=== PATIENT | female | born 1955 | race Caucasian/White ===

== ENCOUNTER 2021-03-07 16:08 | Outpatient (CLI) | payer OTHER, SELFPAY ==
--- NOTE | 2021-03-07 15:30 | ECG_ITS ---
Measurements Intervals [place] Rate: 68 P: 5 ID: 163 QRS: -7 QRSD: 94 T: 22 QT: 436 QTc: 464 Interpretive Statements SINUS RHYTHM BASELINE ARTIFACT- I, III, AVR, AVL,A VF NORMAL ECG Electronically Signed On 03-07-2021 15:29:51 CDT by Abdirashid Richey D.O.
[2021-03-07 15:53] LABS: Hematocrit 46.6 % (37.0-47.0); Hemoglobin 15.4 g/dL (12.0-15.0)
== END 2021-03-07 16:09 | disposition home or self-care (01) ==
LOC: ANHSURGERY 04-17 16:09
PROVIDERS: Anesthesiology; PCP Nurse Practitioner Adult Health; Visit Provider Surgery Plastic and Reconstructive Surgery
DX: Z01.818 Encounter for other preprocedural examination (principal); Z41.9 Encounter for procedure for purposes other than remedying health state, unspecified
CPT/HCPCS: 36415; 85014; 85018; 93005

== ENCOUNTER → 2021-03-15 01:02 | Outpatient (CLI) | payer OTHER, SELFPAY ==
[2021-03-15 19:43] LABS: SARS-CoV-2 RNA PCR Negative
== END ==
PROVIDERS: PCP Nurse Practitioner Adult Health; Visit Provider Surgery Plastic and Reconstructive Surgery
DX: Z01.812 Encounter for preprocedural laboratory examination (principal); Z20.822 Contact with and (suspected) exposure to COVID-19
CPT/HCPCS: C9803; U0003; U0005

== ENCOUNTER 2021-03-18 00:11 | Day surgery (SDC) | payer OTHER, SELFPAY ==
[2021-03-18] VITALS (10 sets, daily range): BP systolic 139–179; BP diastolic 77–108; PULSE 59–82; RESP 10–18; TEMP 36.3–36.7; O2SAT 97–100
[2021-03-18 07:22] LABS: Urine Cotinine NEGATIVE
[2021-03-18] MEDS: LACTATED RINGERS 1,000 ML 30 ML IV CONT ×2 (07:35→15:26)
--- NOTE | 2021-03-18 08:27 | WPDANESEPPF ---
Anes - Initial Pre Proc Eval Procedure: Operation Date: 03/18/21 09:00 Proposed Procedures p Face and Neck Lift, - Robert Kumar MD s Bilateral Upper Eyelid Blepharoplasty - Robert Kmuar MD s Upper Abdominal Liposuction - Robert Kumar MD Date/Time: 03/18/21 08:27 Surgeon: Robert Kumar MD Pre Op Diagnosis: skin laxity, localized adiposity Patient Data Age: 65 Gender: F Height: 5 ft 3 in Weight: 77.55 kg Last Vital Signs Temp 36.6 C 03/18/21 07:19 Pulse 59 L 03/18/21 07:19 Resp 18 03/18/21 07:19 BP 152/89 H 03/18/21 07:19 Pulse Ox 100 03/18/21 07:19 Allergies Allergy/AdvReac Type Severity Reaction Status Date / Time codeine Allergy Gastrointestinal Verified 03/18/21 07:43 Upset iodine Allergy Swelling Verified 03/18/21 07:43 morphine Allergy Gastrointestinal Verified 03/18/21 07:43 Upset Home Medications Medication Instructions Recorded Confirmed Type apple cider vinegar 300 mg PO DAILY 03/04/21 03/18/21 History calcium 600 mg PO DAILY 03/04/21 03/18/21 History glucos sul [id number] 1 cap PO DAILY 03/04/21 03/18/21 History [Glucosamine Chondroitin] multivitamin 1 tablet PO DAILY 03/04/21 03/18/21 History omega-3 fatty acids [Fish Oil] 1,000 mg PO DAILY 03/04/21 03/18/21 History vitamin B complex 1 tablet PO DAILY 03/04/21 03/18/21 History docusate sodium 100 mg capsule 100 mg PO DAILY #14 cap 03/10/21 03/18/21 Rx ondansetron HCl 4 mg tablet 4 mg PO Q8H #28 tablet 03/10/21 03/18/21 Rx oxycodone-acetaminophen 5 mg-325 1 tablet PO Q6H PRN #15 tablet 03/12/21 03/18/21 Rx mg tablet Laboratory Tests 03/18/21 07:07 Cotinine Negative Patient hx anesthesia problems: none Family hx anesthesia problems: none PMFSH Surgical History Surgical History History of breast reconstruction History of delivery History of cholecystectomy History of cosmetic plastic surgery excess skin removal History of hernia repair Social History Social History Smoking status: Never smoker Alcohol intake: never Substance use: never Substance use type: does not use Living arrangements: with family Spiritual care concerns: No Anes - Eval Final PreProcedure Day of Procedure 03/18/21 08:27 Patient weight: obese Heart: regular rate and rhythm Lungs: clear to auscultation Airway: Mallampati scale class II Neurological: alert and oriented Last oral intake: >/= 8 hours ASA classification: II Emergent: no Anesthetic plan: proceed Anesthesia type and monitoring: general ETT and standard monitoring Informed Consent: The patient's anesthetic plan and its attendant risks and benefits were discussed with the patient/family/POA. Questions were solicited and answers provided to the satisfaction of the patient/family/POA.
--- NOTE | 2021-03-18 08:58 | WPDHPUPDATE1 ---
History and Physical Update Update Date/Time: 03/18/21 08:58 History and Physical has been reviewed, including an updated exam of the patient. There are NO changes in the patient's condition. Risks, benefits, and alternatives have been discussed and questions answered. Patient agrees to proceed with procedure.
[2021-03-18] MEDS: ceFAZolin 2 GM/D5W 50 ML 2 GM/50 ML BAG IVPB (09:50)
[2021-03-18] MEDS: LIDO 1%/EPINEPHRINE 1:100,000 50 ML VIAL INFILTRATE (11:32)
[2021-03-18] MEDS: ceFAZolin SODIUM 1 GM VIAL IV PUSH (13:47)
[2021-03-18] MEDS: TRANEXAMIC ACID 1,000 MG/10 ML AMPUL 1000 MG IV PUSH (14:02)
--- NOTE | 2021-03-18 15:21 | PM.PROC ---
Procedure Note - Detailed Date of procedure: 03/18/21 Pre-op diagnosis: skin laxity, localized adiposity Post-op diagnosis: same Procedure performed: 1. Face-lift 2. Neck lift 3. Bilateral upper eyelid blepharoplasty 4. Suction lipectomy upper abdomen Description of procedure: Preoperatively the risks, benefits, alternatives were discussed in extensive detail with her and her . I want them to be very realistic about the risks as well as expectations. Made sure answered all of their questions to their satisfaction and consent was obtained. They voiced understanding. She was marked in the preoperative holding area. In the standing position and marked the abdomen. Marked the upper eyelid blepharoplasty with the lower incision of the tarsal crease. I did a pinch test technique to ensure she would have no lagophthalmos after the procedure. The remainder of the markings were made. She was taken to the operating room placed supine on the operating room table. Anesthesia was provided by anesthesiology. She was prepped and draped in a standard sterile fashion. Surgical time-out was taken. Abdomen: I began at the abdomen. I did a thorough abdominal examination to rule out any hernias. Stab incisions were made through previous scars. I used a tumescent solution to tumesced the abdomen. Once adequate time for hemostasis I completed suction lipectomy using and modification of S.A.F.E. technique. This was based on preoperative planning, intraoperative observations, and rolling pinch test. Steri-Strips are placed over the access sites. Blepharoplasty: 1% lidocaine and 0.25% Marcaine with epinephrine was used anesthetize locally. Sharply excised the skin flap. Open the medial and middle compartments and removed any excess adiposity. Care was taken to protect from deep structure injury. I verified strict hemostasis. I closed using running subcuticular 4-0 Prolene which was held into place with Steri-Strips on the medial and lateral aspect. Face/neck: Using a tumescent solution with Tx a I completed infiltration of the face and neck. Fifteen blade used to make a submental incision. Dissection was continued down identified platysma muscle. Elevated skin flaps with good adiposity of the deep surface throughout the neck. Id fat had a portion of the superficial portion of the platysma. I then went sub platysmal and deep fat of the small portion. Care was taken to make sure there was a good smooth contour under the submental area. There really was minimal protrusion of the submandibular glands noted. I plicated the digastric muscle with 2-0 Vicryl. I then slightly trimmed the platysma muscle and imbricated as with vertical mattress sutures using 2-0 Vicryl in multiple layers. I did a inferior platysmal release. I then proceeded made the remainder of the incisions. I elevated skin flaps with good adequate adiposity of the deep surface to have good contour. This was continued for all the areas necessary for mobilization. I then proceeded with mass plication in multiple layers using 2-0 Vicryl bilateral. This is an oblique fashion from the angle towards the malar prominence. Copious irrigated with saline solution and verified strict hemostasis. I placed 10 Pillo drains the right 1 went subcutaneous left 1 a broad around under the platysma muscle. These drains were sutured in place postauricular with this 3-0 Vicryl. The skin flaps were just placed into position without any tension. Trimmed as necessary. Preauricular was closed with 5 0 nylon. Postauricular with 5 0 chromic. I did jimmy in the hairline. Submental was closed using 3-0 Monocryl followed by running subcuticular 4-0 Monocryl and tissue glue. Dressings were placed. Patient was woken without difficulty. All instrument sponge counts were correct at the end of the case. Surgeon: Robert Kumar MD Estimated blood loss (mL): 20 Drains: Yes (Bilateral 10 Pillo) Packing: No Patho
[2021-03-18] MEDS: LACTATED RINGERS 1,000 ML 125 ML IV CONT (15:26)
[2021-03-18] MEDS: fentaNYL CITRATE INJ (*CRX) 100 MCG/2 ML VIAL 25 MCG IV PUSH ×5 (15:40→17:01)
--- NOTE | 2021-03-18 16:10 | SUR.PHASEI ---
1610- updated by phone.
[2021-03-18] MEDS: LABETALOL HCL INJ 100 MG/20 ML VIAL 10 MG IV PUSH (16:36)
--- NOTE | 2021-03-18 16:45 | SUR.PHASEI ---
1630- anesthesia made aware of BP, medication ordered and given.
[2021-03-18] MEDS: ONDANSETRON INJ 4 MG/2 ML VIAL IV PUSH ×2 (17:49→20:06)
[2021-03-18] MEDS: oxyCODONE/ACETAMINOPHEN (*CRX) 5-325 MG TABLET PO (18:22)
[2021-03-18] MEDS: diazePAM (*CRX) 5 MG TABLET 2.5 MG PO (20:06)
[2021-03-18] MEDS: KETOROLAC 30 MG/ML VIAL (*BKC) 15 MG IV PUSH (21:39)
[2021-03-18] MEDS: DOCUSATE SODIUM 100 MG CAPSULE PO (22:40)
[2021-03-18] MEDS: ENOXAPARIN 40 MG/0.4 ML SYRINGE SUB-Q (22:40)
[2021-03-19] MEDS: oxyCODONE/ACETAMINOPHEN (*CRX) 5-325 MG TABLET PO ×2 (01:16→10:50)
[2021-03-19] MEDS: ONDANSETRON INJ 4 MG/2 ML VIAL IV PUSH ×2 (01:21→07:37)
[2021-03-19] MEDS: LACTATED RINGERS 1,000 ML 125 ML IV CONT (01:34)
[2021-03-19] MEDS: IBUPROFEN 600 MG TABLET (03:41)
[2021-03-19 05:20] VITALS: BP 124/79; PULSE 72; RESP 16; TEMP 36.9
[2021-03-19 07:00] VITALS: BP 137/77; PULSE 63; RESP 18; TEMP 36.8; O2SAT 98
--- NOTE | 2021-03-19 07:14 | WPDPN ---
Progress Note: A&P Assessment and Plan (1) Encounter for cosmetic surgery: Code(s): Z41.1 - Encounter for cosmetic surgery Status: Acute Assessment and Plan: She is doing very well after bilateral upper eyelid blepharoplasty, face and neck lift, suction lipectomy of abdomen. All discharge home. Follow-up Wednesday. Call with any questions or concerns. Time Spent With Patient Time with patient: 25 - 35 minutes Review of Systems Review of Systems: Narrative: Still some eye discomfort but much improved. All systems reviewed & are unremarkable except as noted in HPI and below Exam Narrative: Exam Narrative: CN 2-12 grossly intact. PERRLA EOMI. Healing well. No lagophthalmos. No hematoma. No seroma. Drains are in place with minimal drainage. Abdomen is healing well. No signs of infection. No hematoma. No seroma. No calf tenderness. Negative Homans. Const: General: cooperative, healthy appearing and comfortable Objective Data Vital Signs Vital Signs: Vital Signs - 24 hr 03/18/21 07:19 03/18/21 15:26 03/18/21 15:40 Temperature 36.6 C 36.3 C L Pulse Rate 59 L 82 78 Respiratory Rate 18 13 12 Blood Pressure 152/89 H 163/94 H 152/94 H Pulse Oximetry 100 100 97 03/18/21 15:54 03/18/21 16:10 03/18/21 16:43 Temperature Pulse Rate 76 78 68 Respiratory Rate 10 L 12 11 L Blood Pressure 149/91 H 170/90 H 179/108 H Pulse Oximetry 97 97 97 03/18/21 16:57 03/18/21 17:15 Temperature 36.7 C Pulse Rate 72 73 Respiratory Rate 11 L 14 Blood Pressure 139/81 153/90 H Pulse Oximetry 97 98 Intake/Output Intake/Output: Intake & Output 03/16/21 03/17/21 03/18/21 03/19/21 23:59 23:59 23:59 23:59 Intake Total 450 Output Total 175 Balance 275 Meds/Results Medications: Active Medications Generic Name Dose Route Start Last Admin Trade Name Freq PRN Reason Stop Dose Admin Benzocaine 1 lozenge 03/18/21 18:20 Benzocaine/Menthol (*Bkc) 18 Ea Lozenge PO PRN PRN Sore Throat Calcium Carbonate 500 mg 03/19/21 09:00 Calcium Carbonate (Oscal) 500 Mg Tablet PO 04/18/21 09:01 DAILY VICTOR HUGO Diazepam 2.5 mg 03/18/21 19:31 03/18/21 20:06 Diazepam (*Crx) 5 Mg Tablet PO 2.5 mg DAILY PRN Administration Anxiety Docusate Sodium 100 mg 03/18/21 21:00 03/18/21 22:40 Docusate Sodium 100 Mg Capsule PO 100 mg Q12HR VICTOR HUGO Administration Enoxaparin Sodium 40 mg 03/18/21 22:00 03/18/21 22:40 Enoxaparin 40 Mg/0.4 Ml Syringe SUB-Q 40 mg DAILY VICTOR HUGO Administration Lactated Ringer's 1,000 mls @ 125 mls/hr 03/18/21 15:35 03/19/21 01:34 Lr - Lactated Ringers Iv IV CONT 125 mls/hr .Q8H VICTOR HUGO Administration Ibuprofen 600 mg 03/19/21 03:43 Ibuprofen 600 Mg Tablet PO Q6H PRN Pain Mineral Oil/Petrolatum/Glycerin 1 applic 03/18/21 21:00 Mineral Oil/Petrolatum Ophth Oint 3.5 Gm (Eye Lubricant) EACH EYE HS [facility] Morphine Sulfate 2 mg 03/18/21 15:32 Morphine Sulfate (*Crx) 2 Mg/Ml Inj IV PUSH Q2H PRN Pain Ondansetron HCl 4 mg 03/18/21 15:32 03/19/21 01:21 Ondansetron Inj 4 Mg/2 Ml Vial IV PUSH 4 mg Q6H PRN Administration Nausea Oxycodone/Acetaminophen 1 - 2 tablet 03/18/21 15:32 03/19/21 01:16 Oxycodone/Acetaminophen (*Crx) 5-325 Mg Tablet PO 2 tablet Q6H PRN Administration Pain 7-10 Tetracaine HCl 1 drop 03/18/21 19:08 Tetracaine Hcl 0.5% Ophth Soln 4 Ml Btl EACH EYE 03/20/21 19:09 Q6HR PRN EYE PAIN Labs Labs: Laboratory Results - last 24 hr 03/18/21 07:07 Cotinine Negative Subjective Date/time seen: 03/19/21 07:14 Last evening I saw her because of some pain in her eyes. We irrigated with BSS and placed GenTeal eyedrops. Following this she had significant improvement. As anticipated discomfort overnight. This morning she says she is doing much better. Still having some discomfort as expected. Otherwise no complaints. No fev
--- NOTE | 2021-03-19 07:31 | P.DS_ITS ---
DS: Admitting Diagnosis Admitting Diagnosis Admitting Diagnosis: Encounter cosmetic surgery DS: Discharge Diagnosis Discharge Diagnosis (1) Encounter for cosmetic surgery: Code(s): Z41.1 - Encounter for cosmetic surgery Status: Acute DS: Summary Hospital Course Hospital Course: Patient underwent bilateral upper eyelid blepharoplasty, face and neck lift, suction lipectomy of upper abdomen. Doing very well. Will discharge home. Time Spent with Patient Time attestation: Total time spent providing and/or coordinating discharge services: 25 minutes with her and her . Exam Narrative: Exam Narrative: CN 2-12 grossly intact. PERRLA EOMI. Healing well. No lagophthalmos. No hematoma. No seroma. Drains are in place with minimal drainage. Abdomen is healing well. No signs of infection. No hematoma. No seroma. No calf tenderness. Negative Homans. Const: General: cooperative, healthy appearing and comfortable Discharge Plan Discharge Patient Disposition: Home, Self-Care Discharge Instructions: POST OPERATIVE DISCHARGE INSTRUCTIONS ROBERT KUMAR M.D. [facility] [facility] [address] [place] [address] * No driving for 24 hours after anesthesia and while you are taking pain medication. * Take all prescribed medication as directed * Diet as tolerated. * No lifting or activity that raises blood pressure for 48 hours. * Regular walking / ambulation. * No showering until directed to. Once you shower do not take pain medication before showering as the combination of medication and heat may cause you to feel dizzy or pass out. * No pools or tubs for 2 weeks. * Call with any questions or concerns. * Elevate head of bed until follow-up. * Dressing Care: Facelift tape / abdominal binder 23 hours per day. If you have any questions or concerns, please call the office . If it is after hours you will be directed to the operations and maintenance technician exchange. Shortness of breath, chest pain, or other medical emergency dial 911 / proceed to the Emergency Room. Patient Instructions: [facility] (GEN) Stand Alone Forms: General Discharge Instructions Follow-up/Referrals: Robert Kumar MD [Physician] - 1 Week Discharge Medications: Continued multivitamin Tablet 1 tablet PO DAILY RF: 0 calcium 600 mg Capsule 600 mg PO DAILY RF: 0 vitamin B complex Tablet 1 tablet PO DAILY RF: 0 omega-3 fatty acids Capsule 1,000 mg PO DAILY RF: 0 apple cider vinegar 300 mg Tablet 300 mg PO DAILY RF: 0 Glucosamine Chondroitin 550-30-1 mg Capsule 1 cap PO DAILY RF: 0 ondansetron HCl [Zofran] 4 mg tablet 4 mg PO Q8H Qty: 28 RF: 0 docusate sodium [Colace] 100 mg capsule 100 mg PO DAILY Qty: 14 RF: 0 oxycodone-acetaminophen [Percocet] 5-325 mg tablet 1 tablet PO Q6H PRN (Reason: pain) Qty: 15 RF: 0
--- NOTE | 2021-03-19 09:04 | WPDANESPN ---
Anes - Prog Note Post-Op Date/Time: 03/19/21 09:04 Cardiovascular status: normal Respiratory status: normal Airway patency: baseline Mental status: baseline Post-Op hydration status: normal Vital Signs: Last Vital Signs Temp 36.9 C 03/19/21 05:20 Pulse 72 03/19/21 05:20 Resp 16 03/19/21 05:20 BP 124/79 03/19/21 05:20 Pulse Ox 97 03/18/21 20:00 Pain Score (VAS): no c/o pain I/O: Intake & Output 03/18/21 03/19/21 03/19/21 23:59 07:59 15:59 Intake Total 400 300 Output Total 175 965 Balance 225 -665 Post-procedural complaints: none Patient Feedback: Patient satisfied with anesthetic care.
[2021-03-19] MEDS: DOCUSATE SODIUM 100 MG CAPSULE PO (10:40)
[2021-03-19] MEDS: CALCIUM CARBONATE (OSCAL) 500 MG TABLET PO (10:40)
[2021-03-19] MEDS: ENOXAPARIN 40 MG/0.4 ML SYRINGE SUB-Q (10:40)
== END 2021-03-19 13:12 | disposition home or self-care (01) ==
LOC: ANHSURGERY 06:54 → ANHOB2 17:37
PROVIDERS: PCP Nurse Practitioner Adult Health; Visit Provider Surgery Plastic and Reconstructive Surgery
PROC: (CPT 15824; principal; 2021-03-18 09:00)
PROC: (CPT 15877; 2021-03-18 09:00)
PROC: (CPT 15877; 2021-03-18 09:00)
DX: Z41.1 Encounter for cosmetic surgery (principal); L57.4 Cutis laxa senilis; Z79.899 Other long term (current) drug therapy; E66.9 Obesity, unspecified; Z68.30 Body mass index [BMI] 30.0-30.9, adult
CPT/HCPCS: 15877; 15825; 15822; 80307; 99199; A9270; J0171; J0690; J1100; J1170; J1650; J1885; J2250; J2405; J2704; J3010; J7030; J7120; Q9968

== ENCOUNTER 2021-08-05 02:06 | Day surgery (SDC) | payer BC, SELFPAY ==
[2021-07-29 13:12] VITALS: BMI 29.1
--- NOTE | 2021-08-05 10:32 | WPDANESEPPF ---
Anes - Initial Pre Proc Eval Procedure: Operation Date: 08/05/21 12:00 Proposed Procedures p Screening Colonoscopy - Yann Dyer MD Date/Time: 08/05/21 10:32 Surgeon: Yann Dyer MD Pre Op Diagnosis: neoplasm screening Patient Data Age: 65 Gender: F Height: 1.63 m Weight: 77 kg Allergies Allergy/AdvReac Type Severity Reaction Status Date / Time codeine Allergy Gastrointestinal Verified 08/05/21 10:34 Upset iodine Allergy Swelling Verified 08/05/21 10:34 morphine Allergy Gastrointestinal Verified 08/05/21 10:34 Upset Home Medications Medication Instructions Recorded Confirmed Type phentermine 37.5 mg PO DAILY 07/29/21 08/05/21 History Patient hx anesthesia problems: none Family hx anesthesia problems: none [facility] Past Medical History Medical History (Updated 08/05/21 @ 10:39 by Yann Dyer MD) Depression Surgical History Surgical History History of breast reconstruction History of delivery History of cholecystectomy History of cosmetic plastic surgery excess skin removal History of hernia repair Social History Social History Smoking status: Never smoker Alcohol intake: current Alcohol use details: drink on May Substance use: current Substance use type: marijuana Other substance usage details: gummies Living arrangements: with family Spiritual care concerns: No Anes - Eval Final PreProcedure Day of Procedure 08/05/21 10:32 Patient weight: overweight Heart: regular rate and rhythm Lungs: clear to auscultation and normal air movement Airway: Mallampati scale class II Neurological: alert and oriented Last oral intake: >/= 8 hours ASA classification: II Emergent: no Anesthetic plan: proceed Anesthesia type and monitoring: general GIVS and standard monitoring Informed Consent: The patient's anesthetic plan and its attendant risks and benefits were discussed with the patient/family/POA. Questions were solicited and answers provided to the satisfaction of the patient/family/POA.
[2021-08-05 10:37] VITALS: BP 154/117; PULSE 96; RESP 18; TEMP 37.5; O2SAT 98; BMI 28.8
--- NOTE | 2021-08-05 10:38 | WPDGICN ---
Assessment and Plan Assessment and plan (1) History of colon polyps: Code(s): Z86.010 - Personal history of colonic polyps Status: Acute Assessment and Plan: Patient has a prior history of colon polyps. Surveillance colonoscopy advised at this time. Further recommendations will be given after endoscopy. (2) Family history of colonic polyps: Code(s): Z83.71 - Family history of colonic polyps Status: Acute Assessment and Plan: Patient's daughter and mother both have had colon polyps as well as patient. Surveillance colonoscopy is advised every 5 years given this history. GI Consult Note Consult date/time: 08/05/21 10:38 HPI: Henrry Priest is a 65 year old female Presents for screening colonoscopy. Patient reports having had a colonoscopy elsewhere 12 years ago. She reports that they found colon polyps at that time. She has not had return for follow-up colonoscopy until today. Family history is significant that her mother has had colon polyps and her daughter has had colon polyps. Patient reports that her current weight appetite bowel movements are normal. Her family history is as stated. Review of Systems Review of Systems: All systems reviewed & are unremarkable except as noted in HPI and below PMFSH Past Medical History Medical History (Updated 08/05/21 @ 10:39 by Yann Dyer MD) Depression Surgical History Surgical History History of breast reconstruction History of delivery History of cholecystectomy History of cosmetic plastic surgery excess skin removal History of hernia repair Social History Social History Smoking status: Never smoker Alcohol intake: current Alcohol use details: drink on May Substance use: current Substance use type: marijuana Other substance usage details: ruby Living arrangements: with family Spiritual care concerns: No Meds Home Medications and Allergies Home Medications Medication Instructions Recorded Confirmed Type phentermine 37.5 mg PO DAILY 07/29/21 08/05/21 History Allergies Allergy/AdvReac Type Severity Reaction Status Date / Time codeine Allergy Gastrointestinal Verified 08/05/21 10:34 Upset iodine Allergy Swelling Verified 08/05/21 10:34 morphine Allergy Gastrointestinal Verified 08/05/21 10:34 Upset Exam Narrative: Physical exam reveals patient to be alert. Vital signs stable. HEENT exam is unremarkable. Patient is anicteric. Lungs are clear to auscultation and percussion. Heart is without murmur or extra sounds. Abdominal exam bowel sounds are present soft nontender with no organomegaly. Digital external rectal exam is normal.
[2021-08-05] MEDS: LACTATED RINGERS 1,000 ML 150 ML IV CONT (10:40)
[2021-08-05] MEDS: SIMETHICONE ORAL SUSPENSION 20 MG/0.3 ML 30 ML BOTTLE 0.6 ML IRRIGATION (11:41)
[2021-08-05 11:51] VITALS: BP 150/89; PULSE 76; RESP 15; O2SAT 100
[2021-08-05 12:01] VITALS: BP 151/88; PULSE 76; RESP 15; O2SAT 100
[2021-08-05 12:11] VITALS: BP 168/84; PULSE 76; RESP 18; O2SAT 100
== END 2021-08-05 12:20 | disposition home or self-care (01) ==
PROVIDERS: PCP Nurse Practitioner Adult Health; Visit Provider Internal Medicine Gastroenterology
PROC: 0DJD8ZZ Inspection of Lower Intestinal Tract, Via Natural or Artificial Opening Endoscopic (ICD-10-PCS; CPT 45378; principal; 2021-08-05 12:00)
DX: Z12.11 Encounter for screening for malignant neoplasm of colon (principal); D12.2 Benign neoplasm of ascending colon; K64.8 Other hemorrhoids; Z83.71 Family history of colonic polyps; F12.90 Cannabis use, unspecified, uncomplicated
CPT/HCPCS: 45385; 88305; J2001; J2704; J7120

== ENCOUNTER 2022-07-23 07:58 | Outpatient (CLI) | payer OTHER, SELFPAY ==
--- NOTE | 2022-07-23 08:00 | ECG_ITS ---
Measurements Intervals [place] Rate: 69 P: 5 [place]: 183 QRS: -8 QRSD: 104 T: 25 QT: 442 QTc: 474 Interpretive Statements SINUS RHYTHM BASELINE ARTIFACT NORMAL ECG COMPARED TO ECG 03/07/2021 15:22:48 NO SIGNIFICANT CHANGES Electronically Signed On 07-23-2022 15:15:47 CDT by Franky Soler M.D.
[2022-07-23 08:31] LABS: Hematocrit 44.8 % (37.0-47.0); Hemoglobin 14.8 g/dL (12.0-15.0)
== END 2022-07-23 07:59 | disposition home or self-care (01) ==
LOC: ANHSURGERY 08:03
PROVIDERS: Anesthesiology; PCP Nurse Practitioner Adult Health; Visit Provider Surgery Plastic and Reconstructive Surgery
DX: Z01.818 Encounter for other preprocedural examination (principal); M79.3 Panniculitis, unspecified
CPT/HCPCS: 36415; 85014; 85018; 93005

== ENCOUNTER 2022-07-28 00:47 | Day surgery (SDC) | payer OTHER, SELFPAY ==
--- NOTE | 2022-07-22 15:37 | PC.NURSE ---
Report to the Outpatient Waiting Room, entrance under the green pavilion located off [facility], at time _0600 on date _07/28/22 . OR Time: _729 . - You and your visitor will be asked to self-screen and do not enter if you have any COVID symptoms. - Only one visitor and NO children visitors are allowed at this time. - The patient visitor is requested to leave or wait in car when not with patient due to restrictions. - A mask is required within the hospital. Patients may have clear liquids (water, carbonated beverages, clear teas, apple juice) until 3 hours prior to surgery with a maximum of 20 ounces. - No food from midnight until time of surgery - Infants may have breast milk until 4 hours before surgery, infant formula 6 hours prior to surgery. - Children will be allowed to drink immediately following surgery. If applicable, please bring a bottle or sippy cup to assist with drinking. Juice, water, soda, and popsicles are readily available. For infants on formula, please bring formula the day of surgery. Pacifiers are allowed. Take the following medications with a SIP of water the morning of surgery: ____NONE Medications to discontinue per physician ___PRENATAL 3 DAYS PRE OP Date to take last dose___07/24/22 Please no make-up, nail afghan, hairspray, perfume, deodorant, or body powder the day of surgery. No jewelry (including any body piercings) or valuables the day of surgery, leave them at home. Please take a shower or bath the night before, or the morning of, surgery with an antibacterial soap. Wear comfortable, loose fitting clothing. Children are encouraged to wear pajamas. - Jewelry must be removed prior to entering the operating room. Rings and piercings that are not removed may be cut off. - The hospital will not accept responsibility for valuables. - Please leave all valuables, including medications, at home the day of surgery. If you are going home after surgery, a licensed roll off driver must drive you home. - NO public transportation without another adult. - We recommend that an adult stay with you for 24 hours following discharge. - We also recommend that you do not drive, make important decision, drink alcoholic beverages, or take any drugs that were not prescribed by your health care provider for at least 24 hours after your discharge time. For Pediatric surgeries, we recommend two adults accompany the child home (only one inside the building at this time). Follow any additional instructions given to you from your surgeon. If you or anyone in your household have experienced Covid symptoms in the past week, please notify your surgeon or the nurse liaison at the phone number below for possible testing. Telephone instructions given to PATIENT and asked if any additional questions and then verbalized understanding. Patient advised to call surgeon office or pre surgery nurse liaison [phone] if any additional questions.
[2022-07-22 15:48] VITALS: BMI 32.5
--- NOTE | 2022-07-26 12:29 | W.PM.PROC2 ---
Procedure Note - Detailed Date of Procedure 07/28/22 Pre-op Diagnosis excess skin, panniculitis Post-op Diagnosis Same Procedure Performed 1. Suction lipectomy / bra roll excision. 2. Panniculectomy Surgeon Robert Kumar MD Anesthesia General Findings Bra roll tissue excision: 782 grams Panniculectomy: 2,064.2 grams Lipoaspirate: 2,000 cc Description of Procedure Preoperatively the risks, benefits, alternatives were discussed in extensive detail. I wanted her to very realistic about the risks involved as well as expectations. She was accompanied by her . We discussed her natural tissue and limitations of the procedure. We discussed transverse abdominal scar and how this can lead to wound breakdown, skin loss, and even need for additional procedures and skin grafting with permanent deformity. I was very up front honest about these risks as I want her to be very well informed. I again went over all the risks, benefits, alternatives. She voiced a clear understanding. Consent obtained. She was marked in the preoperative holding area with her verification. She was taken to the operating room. Anesthesia provided by anesthesiology. She was placed in a prone position with adequate care to protect her from injury. She was prepped and draped in a standard sterile fashion. Surgical time-out was taken. Preoperatively marked planned prolonged line. Stab incision was made and I tumesced with a tumescent solution. Once adequate time for hemostasis using a 5 mm basket cannula on S.A.F.E. technique suction lipectomy was completed multiple planes and passes based on preoperative planning, intraoperative observation, and rolling pinch test which was in full agreement. Ten blade used to make the upper incision. I elevated inferiorly just what was necessary resection as most this had been discontinuous undermined with the suction lipectomy above. Estimated tissue be removed and this was excised sharply. I closed in many layers to obliterate all space with 2-0 Vicryl followed by 2-0 Stratafix, 3-0 Stratafix, running subcuticular 4-0 Monocryl and tissue glue. She was a transfer different bed placed supine. Re-prepped and draped in a standard sterile fashion. I placed her in a sitting position. She had slight dog ears from her bra roll excision and stab incision was made and I tumesced with a tumescent solution. Suction lipectomy completed with a 5mm basket cannula based on S.A.F.E. technique. I excised the dog ear this was closed with 3-0 Stratafix in a running subcuticular 4-0 Monocryl and tissue glue. A thorough abdominal examination was completed. Verified no hernias. Stab incision was made made tumesced with a tumescent solution. Ten blade used to make the lower incision. Dissection was continued down to the fascia and I did a wedge resection no undermining given transverse scar that she has in her upper abdomen. This was closed in many layers to obliterate all space using 2-0 Vicryl followed by 2-0 Stratafix, 3-0 Stratafix, running subcuticular 4-0 Monocryl and tissue glue. She was awoke and taken to the PACU without difficulty. All instrument sponge counts were correct at the end of the case. Estimated Blood Loss 100 Drains No Packing No Pathology None sent Complications No immediate complications Condition Stable Disposition PACU
[2022-07-28] VITALS (19 sets, daily range): BP systolic 105–193; BP diastolic 64–126; PULSE 77–96; RESP 13–21; TEMP 36–37; O2SAT 13–100
[2022-07-28] MEDS: LACTATED RINGERS 1,000 ML 30 ML IV CONT ×2 (06:45→11:50)
[2022-07-28 06:46] LABS: Urine Cotinine NEGATIVE
--- NOTE | 2022-07-28 07:01 | WPDHPUPDATE1 ---
History and Physical Update Update Date/Time: 07/28/22 07:01 History and Physical has been reviewed, including an updated exam of the patient. There are NO changes in the patient's condition. Risks, benefits, and alternatives have been discussed and questions answered. Patient agrees to proceed with procedure.
--- NOTE | 2022-07-28 07:23 | WPDANESEPPF ---
Anes - Initial Pre Proc Eval Procedure: Operation Date: 07/28/22 07:30 Proposed Procedures p Excision of Bra Roll with Liposuction, - Robert Kumar MD s Panniculectomy - Robert Kumar MD Date/Time: 07/28/22 07:23 Surgeon: Robert Kumar MD Pre Op Diagnosis: excess skin, panniculitis Patient Data Age: 66 Gender: F Height: 1.63 m Weight: 90.3 kg Last Vital Signs Temp 97.5 F L 07/28/22 06:20 Pulse 77 07/28/22 06:20 Resp 18 07/28/22 06:20 BP 143/104 H 07/28/22 06:20 Pulse Ox 97 07/28/22 06:20 O2 Del Method Room Air 07/28/22 06:20 Allergies Allergy/AdvReac Type Severity Reaction Status Date / Time codeine Allergy Severe Nausea and Verified 07/28/22 06:37 Vomiting iodine Allergy Swelling Verified 07/28/22 06:37 morphine Allergy Nausea and Verified 07/28/22 06:37 Vomiting Home Medications Medication Instructions Recorded Confirmed Type diazepam 5 mg tablet (Valium) 5 mg PO TID PRN anxiety #7 tabs 07/13/22 07/28/22 Rx docusate sodium 100 mg capsule 100 mg PO DAILY #14 caps 07/13/22 07/28/22 Rx (Colace) ondansetron 4 mg disintegrating 4 mg PO Q8H #21 tabs 07/13/22 07/28/22 Rx tablet oxycodone-acetaminophen 5 mg-325 1 tablet PO Q6H PRN pain #30 tabs 07/13/22 07/28/22 Rx mg tablet (Percocet) enoxaparin 40 mg/0.4 mL 40 mg (0.4 mL) subcut DAILY #4 mL 07/22/22 07/28/22 Rx subcutaneous syringe (Lovenox) vit with calcium-iron 1 tablet PO DAILY 07/22/22 07/28/22 History fum-folic acid 60 mg-0.8 mg tablet diphenhydramine HCl 25 mg tablet 25 mg PO TID PRN SINUS 07/28/22 07/28/22 History Laboratory Tests 07/28/22 06:18 Cotinine Negative Patient hx anesthesia problems: none Family hx anesthesia problems: none Results Review: All pre-operative results and documents have been reviewed as part of the pre-operative evaluation. [facility] Past Medical History Medical History Depression Surgical History Surgical History (Updated 07/15/22 @ 07:18 by Robert Kumar MD) History of breast reconstruction History of delivery History of cholecystectomy History of cosmetic plastic surgery excess skin removal History of hernia repair Social History Social History Smoking status: Never smoker Alcohol intake: current Alcohol use details: drink on Eure Substance use: current Substance use type: marijuana Other substance usage details: gummies Last use: 07/08/22 Living arrangements: with family Spiritual care concerns: No Anes - Eval Final PreProcedure Day of Procedure 07/28/22 07:23 Patient weight: obese Heart: regular rate and rhythm Lungs: clear to auscultation Airway: Mallampati scale class II Neurological: alert and oriented Last oral intake: >/= 8 hours ASA classification: II Emergent: no Anesthetic plan: proceed Anesthesia type and monitoring: general ETT and standard monitoring Results Review: All pre-operative results and documents have been reviewed as part of the pre-operative evaluation. Informed Consent: The patient's anesthetic plan and its attendant risks and benefits were discussed with the patient/family/POA. Questions were solicited and answers provided to the satisfaction of the patient/family/POA.
[2022-07-28] MEDS: ceFAZolin 2 GM/D5W 50 ML 2 GM/50 ML BAG IVPB (07:30)
[2022-07-28] MEDS: TRANEXAMIC ACID 1,000MG/ISO100 1,000 MG/100 ML BAG 200 MG IVPB (07:58)
[2022-07-28] MEDS: LACTATED RINGERS IRRIG 1,000 ML, LIDOCAINE HCL 1% LOCAL INJ 50 ML, EPINEPHrine HCL INJ ... INFILTRATE ×2 (08:28→08:29)
[2022-07-28] MEDS: ceFAZolin SODIUM 1 GM VIAL IV PUSH (11:25)
[2022-07-28] MEDS: fentaNYL CITRATE INJ (*CRX) 100 MCG/2 ML VIAL 25 MCG IV PUSH ×3 (12:20→13:06)
[2022-07-28] MEDS: LABETALOL HCL INJ 100 MG/20 ML VIAL IV PUSH ×2 (12:34→13:26)
--- NOTE | 2022-07-28 12:36 | SUR.PHASEI ---
[address] ALICIA REGARDING ELEVATED BP 189/110,ORDERS RECEIVED,LABETOLOL GIVEN.
[2022-07-28] MEDS: diphenhydrAMINE HCl INJ 50 MG/ML VIAL 12.5 MG IV PUSH ×2 (12:48→13:18)
[2022-07-28] MEDS: SCOPOLAMINE 1.5 MG PATCH TRANSDERM (12:52)
[2022-07-28] MEDS: HALOPERIDOL LACTATE 5 MG/ML VIAL 1 MG IV PUSH (14:38)
--- NOTE | 2022-07-28 15:37 | SUR.PHASEII ---
PATIENT STATED SHE WANTED TO GO HOME. DISCHARGE INSTRUCTIONS REVIEWED. IV REMOVED WHEN PATIENT BEGAN HAVING DRY HEAVES. PATIENT REQUESTED TO BE ADMITTED. DR. HOLLINGSWORTH NOTIFIED. KAYLIE, PACU REGULATORY AND COMPLIANCE TECHNICIAN NOTIFIED. LODE MINER NOTIFIED.
--- NOTE | 2022-07-28 16:18 | OBPPTRN ---
1621 Patient transferred to post room #289 via W/C. Support person present. Oriented to unit, room, information board, admission packet and security measures. Patient verbalizes understanding.
[2022-07-28] MEDS: LACTATED RINGERS 1,000 ML 125 ML IV CONT (16:52)
[2022-07-28] MEDS: ONDANSETRON INJ 4 MG/2 ML VIAL IV PUSH (16:52)
[2022-07-28] MEDS: KETOROLAC 15 MG/ML VIAL (*BKC) IV PUSH ×2 (16:54→22:57)
[2022-07-28] MEDS: oxyCODONE/ACETAMINOPHEN (*CRX) 5-325 MG TABLET PO (20:22)
[2022-07-28] MEDS: carisoprodoL (*CRX) 350 MG TABLET PO (20:23)
[2022-07-29] MEDS: oxyCODONE/ACETAMINOPHEN (*CRX) 5-325 MG TABLET PO (03:29)
[2022-07-29] MEDS: KETOROLAC 15 MG/ML VIAL (*BKC) IV PUSH (04:24)
[2022-07-29 04:30] VITALS: BP 123/75; PULSE 77; RESP 16; TEMP 36.7; O2SAT 95
[2022-07-29] MEDS: DOCUSATE SODIUM 100 MG CAPSULE PO (07:15)
[2022-07-29] MEDS: carisoprodoL (*CRX) 350 MG TABLET PO (07:15)
--- NOTE | 2022-07-29 07:21 | WPDPN ---
Progress Note: A&P Assessment and Plan (1) Encounter for cosmetic surgery: Code(s): Z41.1 - Encounter for cosmetic surgery Status: Acute Assessment and Plan: She is doing very well after panniculectomy and bra roll suction lipectomy/excision. She had significant postoperative nausea and vomiting which is improving now. She says her pain is controlled. Will plan for discharge home. She has a full list of instructions. She understands what monitor for. She is going to call with any questions or concerns. (2) Panniculitis: Code(s): M79.3 - Panniculitis, unspecified Status: Acute Subjective Date/time seen: 07/29/22 07:21 Interval history: She is doing well after suction lipectomy /bra roll excision as well as panniculectomy. She stayed overnight due to nausea. This has improved today. Doing well. No fevers or chills. No nausea vomiting. No shortness of breath. No chest pain. No calf tenderness. Review of Systems Review of Systems: All systems reviewed & are unremarkable except as noted in HPI and below Exam Narrative: Alert and oriented no obvious distress Respiratory labored Abdomen soft. No signs infection. No hematoma. No seroma. Good color and capillary refill. Back is healing well. No signs of infection. No hematoma. No seroma. No calf tenderness. Negative Homans. Objective Data Vital Signs Vital Signs: Vital Signs - 24 hr 07/28/22 11:50 07/28/22 12:05 07/28/22 12:20 Temperature 36.0 C L 36.0 C L 36.3 C L Pulse Rate 81 92 96 Respiratory Rate 21 H 13 14 Blood Pressure 120/89 174/106 H 189/108 H Pulse Oximetry 95 100 13 L Oxygen Delivery Simple Face Mask Simple Face Mask Simple Face Mask Oxygen Flow Rate 10 10 10 07/28/22 12:34 07/28/22 12:38 07/28/22 12:50 Temperature 36.4 C Pulse Rate 92 78 81 Respiratory Rate 14 13 Blood Pressure 191/95 H 180/97 H Pulse Oximetry 100 96 Oxygen Delivery Simple Face Mask Room Air Oxygen Flow Rate 10 07/28/22 13:05 07/28/22 13:26 07/28/22 13:20 Temperature 36.7 C Pulse Rate 83 86 78 Respiratory Rate 17 18 Blood Pressure 175/98 H 193/126 H Pulse Oximetry 97 97 Oxygen Delivery Room Air Room Air Oxygen Flow Rate 07/28/22 13:39 07/28/22 13:43 07/28/22 14:10 Temperature 36.9 C Pulse Rate 79 83 88 Respiratory Rate 19 16 16 Blood Pressure 151/77 H 146/84 H 125/71 Pulse Oximetry 95 98 Oxygen Delivery Room Air Room Air Oxygen Flow Rate 07/28/22 14:40 07/28/22 15:10 07/28/22 15:50 Temperature 36.7 C Pulse Rate 85 80 83 Respiratory Rate 16 16 16 Blood Pressure 105/68 107/73 128/78 Pulse Oximetry 92 93 Oxygen Delivery Room Air Room Air Oxygen Flow Rate 07/28/22 16:21 07/28/22 16:21 07/28/22 20:25 Temperature 36.6 C Pulse Rate 83 86 Respiratory Rate 18 18 Blood Pressure 147/90 H Pulse Oximetry 95 95 Oxygen Delivery Room Air Room Air Oxygen Flow Rate 07/28/22 20:25 07/28/22 23:00 07/28/22 23:00 Temperature 37.0 C 36.4 C L Pulse Rate 86 79 79 Respiratory Rate 18 16 16 Blood Pressure 124/79 111/64 Pulse Oximetry 95 94 94 Oxygen Delivery Room Air Oxygen Flow Rate 07/29/22 04:30 07/29/22 04:30 Temperature 36.7 C Pulse Rate 77 77 Respiratory Rate 16 16 Blood Pressure 123/75 Pulse Oximetry 95 95 Oxygen Delivery Room Air Oxygen Flow Rate Intake/Output Intake/Output: Intake & Output 07/26/22 07/27/22 07/28/22 07/29/22 23:59 23:59 23:59 23:59 Intake Total 1050 320 Output Total 700 300 Balance 350 20 Meds/Results Medications: Active Medications Generic Name Dose Route Start Last Admin Trade Name Freq PRN Reason Stop Dose Admin Carisoprodol 350 mg 07/28/22 18:00 07/29/22 07:15 Carisoprodol (*Crx) 350 Mg Tablet PO 350 mg Q6HR VICTOR HUGO Administration Diazepam 5 mg 07/28/22 15:36 Diazepam (*Crx) 5 Mg Tablet PO TID PRN Anxiety Docusate Sodium 100 mg 07/28/22 21:00 07/29/22 0
--- NOTE | 2022-07-29 07:29 | PM.DS ---
DS: Admitting Diagnosis Discharge Date 07/29/2022 Admitting Diagnosis Encounter cosmetic surgery Panniculitis DS: Discharge Diagnosis Discharge Diagnosis (1) Encounter for cosmetic surgery: Code(s): Z41.1 - Encounter for cosmetic surgery Status: Acute Assessment and Plan: She is doing very well after panniculectomy as well as bra roll suction lipectomy and excision. Her postoperative nausea and vomiting is much improved. Her pain is well controlled. She is ambulating. Tolerating diet now. Will plan for discharge home. I will see her back. Today we had a lengthy discussion about the care. What to monitor for. This was a lengthy open-ended conversation answering all of her questions to her and her 's satisfaction. They voiced clear understanding. I will see her back. (2) Panniculitis: Code(s): M79.3 - Panniculitis, unspecified Status: Acute (3) Postoperative nausea and vomiting: Code(s): R11.2 - Nausea with vomiting, unspecified; Z98.890 - Other specified postprocedural states Status: Acute DS: Summary Hospital Course Hospital Course: She underwent panniculectomy as well as bra roll excision/suction lipectomy. She stayed overnight due to postoperative nausea and vomiting which has significantly improved this morning. Will plan for discharge home. Time Spent with Patient Time attestation: Total time spent providing and/or coordinating discharge services: Discharge Plan Discharge Patient Disposition: Home, Self-Care Discharge Instructions: POST OPERATIVE DISCHARGE INSTRUCTIONS ROBERT KUMAR M.D. [facility] [address] [place] [address] [address] for 24 hours after anesthesia and while you are taking pain medication. Take all prescribed medication as directed Diet as tolerated. No lifting or activity that raises blood pressure for 48 hours. Regular walking / ambulation. May shower in 24 hours.. Once you shower do not take pain medication before showering as the combination of medication and heat may cause you to feel dizzy or pass out. No pools or tubs for for than 2 weeks. Call with any questions or concerns. Dressing Care: Abdominal binder / foam 23 hours per day. If you have any questions or concerns, please call the office . If it is after hours you will be directed to the concaver exchange. Shortness of breath, chest pain, or other medical emergency dial 911 / proceed to the Emergency Room. Remove the Scopolamine patch that was placed behind your ear in 72 hours or less. Wash your hands after touching. Skin Adhesive Care Skin adhesive is medical glue used to close wounds. It is a substitute for jimmy and stitches. Skin adhesive wound closures take less time and do not require anesthesia. You have less pain and a lower risk of infection than with jimmy or stitches. Skin adhesive will fall off after the wound is healed. Discharge instructions: Keep wound clean and dry. You can shower 24 hours after adhesive is applied but do not soak in bath or hot tub until wound is healed or provider approves. Do not pick or scrub your wound or the adhesive. This can make your wound reopen. ?Do not apply ointments to your wound. These include antibiotic or other ointments that would contain petroleum jelly. These products will remove skin adhesive and reopen the wound. Contact your provider if you have a fever, your wound is red and warm to touch or have questions about your condition or care. Seek care immediately if your wound is draining fluid or open. Stand Alone Forms: General Discharge Instructions Follow-up/Referrals: Robert Kumar MD [Physician] - Other (Tomorrow 07/29/2022) Discharge Medications: Continued docusate sodium [Colace] 100 mg capsule 100 mg PO DAILY Qty: 14 0RF ondansetron 4 mg tablet,disintegrating 4 mg PO Q8H Qty: 21 0RF oxy
[2022-07-29] MEDS: ENOXAPARIN 40 MG/0.4 ML SYRINGE SUB-Q (07:49)
[2022-07-29 08:15] VITALS: BP 115/78; PULSE 74; RESP 18; TEMP 36.6; O2SAT 96
== END 2022-07-29 10:30 | disposition home or self-care (01) ==
LOC: ANHSURGERY 14:53 → ANHOB2 16:10
PROVIDERS: PCP Nurse Practitioner Adult Health; Visit Provider Surgery Plastic and Reconstructive Surgery
PROC: (CPT 15877; principal; 2022-07-28 07:30)
PROC: 0JB80ZZ Excision of Abdomen Subcutaneous Tissue and Fascia, Open Approach (ICD-10-PCS; CPT 15830; 2022-07-28 07:30)
DX: Z41.1 Encounter for cosmetic surgery (principal); M79.3 Panniculitis, unspecified; L98.7 Excessive and redundant skin and subcutaneous tissue; F32.A Depression, unspecified; F12.90 Cannabis use, unspecified, uncomplicated; E66.9 Obesity, unspecified; Z68.34 Body mass index [BMI] 34.0-34.9, adult; Z90.49 Acquired absence of other specified parts of digestive tract
CPT/HCPCS: 15877; 15839; 15830; 80307; 99199; A9270; J0171; J0330; J0690; J1100; J1170; J1200; J1630; J1650; J1885; J2250; J2370; J2405; J2704; J3010; J7120

== ENCOUNTER 2022-11-02 16:54 | Emergency (ER) | payer MEDICARE, OTHER, SELFPAY ==
--- NOTE | ~2022-11-02 | XR_ITS ---
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 RESULT: Lines, tubes, and devices: Cholecystectomy clips. Lungs and pleura: Diffuse reticulonodular opacities. Cardiomediastinal silhouette: Stable. Other: No acute osseous or upper abdominal finding. IMPRESSION: Pulmonary opacities may represent bronchiolitis, as can be seen with atypical infection, asthma, aspi ration, and small airways disease. Reviewed, dictated and finalized at location K. INE WELDER IMPRESSION: Pulmonary opacities may represent bronchiolitis, as can be seen with atypical i nfection, asthma, aspiration, and small airways disease.
[2022-11-02 16:56] VITALS: BP 159/119; PULSE 90; RESP 22; TEMP 36.3; O2SAT 95
--- NOTE | 2022-11-02 16:58 | ECG_ITS ---
Measurements Intervals Perry Rate: 78 P: 21 AK: 177 QRS: 1 QRSD: 95 T: 40 QT: 422 QTc: 483 Interpretive Statements SINUS RHYTHM COMPARED TO ECG 07/23/2022 08:25:56 NO SIGNIFICANT CHANGES Electronically Signed On 11-03-2022 15:19:12 MOVER HELPER by Hemal Vines M.D.
[2022-11-02 17:21] LABS: Basophils Absolute Auto 0.1 K/mm3 (0.0-0.1); Eosinophils Absolute Auto 0.3 K/mm3 (0-0.3); Eosinophils Percent Auto 3.1 % (0-4.4); Hematocrit 44.1 % (37.0-47.0); Hemoglobin 14.9 g/dL (12.0-15.0); Immature Granulocyte Absolute 0.03 K/mm3 (0.00-0.031); Immature Granulocyte Percent A 0.4 % (0-0.5); Lymphocytes Absolute Auto 3.29 K/mm3 (0.9-3.2); Lymphocytes Percent Auto 39.7 % (18.3-44.2); Mean Corpuscular HGB Conc 33.8 g/dl (32-36); Mean Corpuscular Hemoglobin 28.1 pg (26-34); Mean Corpuscular Volume 83.1 fl (80-100); Mean Platelet Volume 8.9 fl (7.4-10.4); Monocytes Absolute Auto 0.7 K/mm3 (0.1-0.6); Monocytes Percent Auto 8.5 % (2.6-8.5); Neutrophils Absolute Auto 3.9 K/mm3 (1.3-6.7); Neutrophils Percent Auto 47.3 % (45.5-73.1); Platelet Count Result 276 k/mm3 (150-375); Red Blood Count 5.31 M/mm3 (4.2-5.4); White Blood Count 8.3 K/mm3 (4.5-10.0)
[2022-11-02 17:31] LABS: Prothrombin Time 12.6 Seconds (11.1-14.7)
[2022-11-02 17:32] LABS: Partial Thromboplastin Time 24.8 SECONDS (22.3-36.8)
[2022-11-02 17:39] LABS: Alanine Aminotransferase 20 U/L (6-35); Albumin Level 4.3 g/dL (3.5-5.1); Alkaline Phosphatase 100 U/L (38-126); Anion Gap 11 mmol/L (8-16); Aspartate Amino Transferase 24 U/L (14-36); Bilirubin,Total 0.4 mg/dL (0.2-1.3); Blood Urea Nitrogen 19 mg/dL (7-17); Calcium 8.9 mg/dL (8.4-10.2); Carbon Dioxide 20 mmol/L (22-30); Chloride 104 mmol/L (98-107); Estimated CRCL calculation 86 ml/min; Estimated Glomerular Filt Rate > 60; Glucose 106 mg/dL (65-110); Potassium 3.8 mmol/L (3.4-5.0); Sodium 135 mmol/L (137-145)
[2022-11-02 17:49] LABS: Troponin I < 0.012 ng/mL (0.000-0.034)
[2022-11-02 17:59] LABS: Influenza A QL RT-PCR Negative (Negative); Influenza B QL RT-PCR Negative (Negative); SARS-CoV-2 RNA PCR Negative
[2022-11-02 21:59] LABS: Appearance Urine Slightly Cloudy (Clear); Bilirubin Urine Negative (Negative); Blood Urine Negative (Negative); Color Urine Yellow (Yellow); Glucose Urine UA Negative (Negative); Ketones Urine Negative (Negative); Leukocyte Esterase Ur 1+ LEU/UL (Negative); Nitrate Urine Negative (Negative); Protein Urine Negative (Negative); Urobilinogen Urine 0.2 mg/dL (<2.0)
[2022-11-02 22:07] LABS: Squamous Epithelial Cell Urine Occasional /hpf (Few)
[2022-11-02 22:08] LABS: Add Urine Microscopic? YES
[2022-11-02 22:21] LABS: Troponin I < 0.012 ng/mL (0.000-0.034)
--- NOTE | 2022-11-02 23:34 | ED.GENADULT ---
HPI - General Adult General Chief complaint: Shortness of Breath/Dyspnea Stated complaint: CP, cough and dyspnea since 09/19 Time Seen by Provider: 11/02/22 23:23 History of Present Illness HPI narrative: Patient is a 67-year-old female who presents the emergency department with chief complaint of cough. Patient reports that since the end of August she was on a trip to [place] and started developing a cough while she was on her trip. The patient came back [place]ide and continued to have a cough and has had some tightness in her chest patient reports this has been ongoing since August and reports that her symptoms have not improved. The patient states that she was seen in urgent care and they recommended that she come to the emergency department for evaluation. Related Data Home Medications Medication Instructions Recorded Confirmed vit with calcium-iron 1 tablet PO DAILY 07/22/22 07/28/22 fum-folic acid 60 mg-0.8 mg tablet diphenhydramine HCl 25 mg tablet 25 mg PO TID PRN SINUS 07/28/22 07/28/22 Allergies Allergy/AdvReac Type Severity Reaction Status Date / Time codeine Allergy Severe Nausea and Verified 11/02/22 17:01 Vomiting iodine Allergy Swelling Verified 11/02/22 17:01 morphine Allergy Nausea and Verified 11/02/22 17:01 Vomiting Review of Systems Review of Systems: A 10 system review of systems was completed on the patient and is negative except for what is stated in the HPI. Nursing and ancillary documentation was reviewed. PMFSH Past Medical History Medical History Depression Surgical History Surgical History History of breast reconstruction History of delivery History of cholecystectomy History of cosmetic plastic surgery excess skin removal History of hernia repair Social History Social History Smoking status: Never smoker Alcohol intake: current Alcohol use details: drink on Substance use: current Substance use type: marijuana Other substance usage details: gummies Last use: 07/08/22 Spiritual care concerns: No Exam Narrative: GENERAL: Well-appearing, well-nourished, and in no acute distress. HEAD: Normocephalic, atraumatic. EYES: PERRLA and EOMI. ENT: Nares clear, no rhinorrhea or epistaxis. Mucous membranes moist. NECK: Supple. CHEST: Clear to auscultation. No respiratory distress. HEART: Regular rate and rhythm. No murmur heard. Normal peripheral pulses. ABDOMEN: Soft, nontender, nondistended, normal active bowel sounds. EXTREMITIES: Normal range of motion. No edema. SKIN: Warm, dry, no rash. NEURO: No focal deficits. Alert and oriented x3. PSYCH: Normal mood and affect. Course Course Emergency Course: EKG is sinus rhythm rate of [address] elevation or ST depression Patient has had ongoing symptoms since the end of August at this time the patient will be treated as though this is an acute bacterial bronchitis. Vital Signs Vital signs: Vital Signs Temperature 36.3 C L 11/02/22 16:56 Pulse Rate 90 11/02/22 16:56 Respiratory Rate 22 H 11/02/22 16:56 Blood Pressure 159/119 H 11/02/22 16:56 Pulse Oximetry 95 11/02/22 16:56 Temperature 36.3 C L 11/02/22 16:56 Pulse Rate 90 11/02/22 16:56 Respiratory Rate 22 H 11/02/22 16:56 Blood Pressure 159/119 H 11/02/22 16:56 Pulse Oximetry 95 11/02/22 16:56 Medical Decision Making Vital Signs Vital Signs: Vital Signs Temperature 36.3 C L 11/02/22 16:56 Pulse Rate 90 11/02/22 16:56 Respiratory Rate 22 H 11/02/22 16:56 Blood Pressure 159/119 H 11/02/22 16:56 Pulse Oximetry 95 11/02/22 16:56 Temperature 36.3 C L 11/02/22 16:56 Pulse Rate 90 11/02/22 16:56 Respiratory Rate 22 H 11/02/22 16:56 Blood Pressure 159/119 H 11/02/22 16
[2022-11-02] MEDS: ALBUTEROL SULFATE (*SP) INHALER 2 PUFF INHALATION (23:46)
[2022-11-03] MEDS: BENZONATATE 100 MG CAPSULE 200 MG PO (00:08)
[2022-11-03] MEDS: predniSONE 20 MG TABLET 60 MG PO (00:08)
[2022-11-03] MEDS: DOXYCYCLINE HYCLATE 100 MG TABLET PO (00:09)
[2022-11-03 01:04] VITALS: O2SAT 99
[2022-11-03 01:05] VITALS: BP 187/123; PULSE 92; RESP 20; O2SAT 99
--- NOTE | 2022-11-03 01:05 | PC.NURSE ---
pt Bp elevated. erp notified. no new orders. pt discharged and given discharge instructions
== END 2022-11-03 01:07 | disposition home or self-care (01) ==
PROVIDERS: Emergency Medicine; Emergency Provider Emergency Medicine; PCP Nurse Practitioner Adult Health
DX: J20.8 Acute bronchitis due to other specified organisms (principal); Z20.822 Contact with and (suspected) exposure to COVID-19; F32.A Depression, unspecified; R07.89 Other chest pain
CPT/HCPCS: 36415; 71046; 80053; 81001; 84484; 85025; 85610; 85730; 87636; 93005; 99284; A9270; J7512

== ENCOUNTER 2024-07-04 08:09 | Outpatient (CLI) | payer MEDICARE, OTHER, SELFPAY ==
[2024-07-04 18:57] LABS: Basophils Absolute Auto 0.1 K/mm3 (0.0-0.1); Basophils Percent Auto 0.9 % (0.2-1.2); Eosinophils Absolute Auto 0.5 K/mm3 (0-0.3); Eosinophils Percent Auto 8.5 % (0-4.4); Hematocrit 41.9 % (37.0-47.0); Hemoglobin 13.2 g/dL (12.0-15.0); Immature Granulocyte Absolute 0.02 K/mm3 (0.00-0.031); Immature Granulocyte Percent A 0.4 % (0-0.5); Lymphocytes Absolute Auto 2.09 K/mm3 (0.9-3.2); Lymphocytes Percent Auto 36.9 % (18.3-44.2); Mean Corpuscular HGB Conc 31.5 g/dl (32-36); Mean Corpuscular Hemoglobin 30.6 pg (26-34); Mean Platelet Volume 9.5 fl (7.4-10.4); Monocytes Absolute Auto 0.6 K/mm3 (0.1-0.6); Monocytes Percent Auto 10.4 % (2.6-8.5); Neutrophils Absolute Auto 2.4 K/mm3 (1.3-6.7); Neutrophils Percent Auto 42.9 % (45.5-73.1); Platelet Count Result 270 k/mm3 (150-375); Red Blood Count 4.32 M/mm3 (4.2-5.4); White Blood Count 5.7 K/mm3 (4.5-10.0)
[2024-07-04 19:33] LABS: Alanine Aminotransferase 24 U/L (6-35); Albumin Level 4.1 g/dL (3.5-5.1); Alkaline Phosphatase 124 U/L (38-126); Anion Gap 10 mmol/L (4-12); Aspartate Amino Transferase 43 U/L (14-36); Bilirubin,Total 0.3 mg/dL (0.2-1.3); Blood Urea Nitrogen 22 mg/dL (7-17); Carbon Dioxide 27 mmol/L (22-30); Chloride 102 mmol/L (98-107); Cholesterol 213 mg/dL (0-200); Estimated Glomerular Filt Rate > 60; Glucose 100 mg/dL (65-110); HDL Direct 44 mg/dL; Potassium 4.4 mmol/L (3.4-5.0); Sodium 139 mmol/L (137-145); Triglycerides 473 mg/dL (<150)
[2024-07-04 19:42] LABS: Erythrocyte Sedimentation Rate 18 mm/hr (0-20)
[2024-07-04 19:44] LABS: LDL Cholesterol Direct 75 mg/dL
[2024-07-04 19:57] LABS: Vitamin D 25 Hydroxy 23.5 ng/mL
[2024-07-04 20:38] LABS: Folic Acid 5.8 ng/mL (2.76->20)
[2024-07-06 13:08] LABS: CRP, High Sensitivity 2.9 mg/L
== END 2024-07-04 08:10 | disposition home or self-care (01) ==
PROVIDERS: PCP Nurse Practitioner Adult Health; Visit Provider Nurse Practitioner Adult Health
DX: E78.5 Hyperlipidemia, unspecified (principal); G50.9 Disorder of trigeminal nerve, unspecified; R53.83 Other fatigue; Z79.899 Other long term (current) drug therapy
CPT/HCPCS: 36415; 80053; 80061; 82306; 82607; 82746; 84443; 85025; 85652; 86141

== ENCOUNTER 2024-07-05 13:34 | Outpatient (CLI) | payer MEDICARE, OTHER, SELFPAY ==
[2024-07-05 19:58] LABS: Rheumatoid Factor < 12.0 IU/ML (<12)
[2024-07-07 01:44] LABS: Protein, Total 6.9 g/dL (6.1-8.1)
[2024-07-07 11:38] LABS: Lupus dRVVT Screen 45 sec (< OR = 45); PTT-LA Screen 30 sec (< OR = 40)
[2024-07-07 11:53] LABS: ANA Cascade Screen POSITIVE (NEGATIVE); Chromatin (Nucleosomal) Ab <1.0 NEG AI (<1.0 NEG); Chromatin Antibody Charge YES; DNA (ds) Antibody Charge YES; RNP Antibody <1.0 NEG AI (<1.0 NEG); RNP Antibody Charge YES; Sm Antibody <1.0 NEG AI (<1.0 NEG); Sm Antibody Charge YES; Sm/RNP Antibody <1.0 NEG AI (<1.0 NEG); Sm/RNP Antibody Charge YES
[2024-07-10 16:04] LABS: Albumin 3.9 g/dL (3.8-4.8); Alpha 1 Globulin 0.3 g/dL (0.2-0.3); Alpha 2 Globulin 0.8 g/dL (0.5-0.9); Beta 1 Globulin 0.5 g/dL (0.4-0.6); Gamma Globulin 0.8 g/dL (0.8-1.7)
== END 2024-07-05 13:35 | disposition home or self-care (01) ==
PROVIDERS: PCP Nurse Practitioner Adult Health; Visit Provider Nurse Practitioner Adult Health
DX: D72.828 Other elevated white blood cell count (principal)
CPT/HCPCS: 36415; 84155; 84165; 85597; 85598; 85613; 85670; 85730; 86038; 86225; 86235; 86364; 86430

== ENCOUNTER 2024-07-13 12:26 | Outpatient (CLI) | payer MEDICARE, OTHER, SELFPAY ==
--- NOTE | ~2024-07-13 | XR_ITS ---
XR wrist LT 2V Ordering provider: Jamia Patrick, DIETETIC AIDE History: . MULTIPLE JOINT PAIN, hx lupus . Comparison: None. FINDINGS: BONES: No acute fracture or dislocation. No definite scaphoid fracture. Cystic changes seen in the l unate and hamate bones which may be degenerative. Rheumatoid arthritis is less likely. Clinical corre lation advised. JOINT SPACES: Well maintained. SOFT TISSUES: Normal. IMPRESSION: No acute osseous abnormality left wrist. Reviewed, dictated and finalized at location A.
--- NOTE | ~2024-07-13 | XR_ITS ---
XR hand LT 2V Ordering provider: Jamia Patrick, SHOTBLAST EQUIPMENT OPERATOR History: . MULTIPLE JOINT PAIN, hx lupus . Comparison: None. FINDINGS: BONES: No acute fracture or dislocation. JOINT SPACES: Well maintained. SOFT TISSUES: Unremarkable. IMPRESSION: No acute osseous abnormality left hand. Reviewed, dictated and finalized at location A.
--- NOTE | ~2024-07-13 | XR_ITS ---
XR hand RT 2V Ordering provider: Jamia Patrick, PHOTOGRAPHS CURATOR History: . MULTIPLE JOINT PAIN, hx lupus . Comparison: None. FINDINGS: BONES: No acute fracture or dislocation. Small bony fragment seen near the distal interphalangeal moo nt of the second finger may be due to old fracture. JOINT SPACES: Normal. SOFT TISSUES: Normal. IMPRESSION: No acute osseous abnormality right hand. Reviewed, dictated and finalized at location A.
--- NOTE | ~2024-07-13 | XR_ITS ---
XR sacroiliac joints min 3V Ordering provider: Jamia Patrick, CLINICAL SOCIAL WORK THERAPIST History: . MULTIPLE JOINT PAIN hx lupus . Comparison: None. FINDINGS: BONES: Transitional vertebra is seen.. No acute fracture or dislocation. JOINTS: The bilateral sacroiliac joint spaces appear well maintained. No bony fusion of the sacroilia c joints or bony erosions. SOFT TISSUES: Unremarkable. IMPRESSION: NO ACUTE OSSEOUS ABNORMALITY. NORMAL SACROILIAC JOINTS. Reviewed, dictated and finalized at location A.
--- NOTE | ~2024-07-13 | XR_ITS ---
XR ankle LT 2V Ordering provider: Jamia Patrick, SALES PROMOTION COORDINATOR History: . MULTIPLE JOINT PAIN, hx lupus . Comparison: None. FINDINGS: BONES: No acute fracture or dislocation. Calcaneus spur. JOINT SPACES: The ankle mortise is normal. SOFT TISSUES: Normal. IMPRESSION: No acute osseous abnormality left ankle. Reviewed, dictated and finalized at location A.
--- NOTE | ~2024-07-13 | XR_ITS ---
XR foot LT 2V Ordering provider: Jamia Patrick, STERILIZATION TECH History: . MULTIPLE JOINT PAIN, hx lupus . Comparison: None. FINDINGS: BONES: No acute fracture or dislocation. Calcaneal spur. Healing fracture in the superior aspect of t he navicular bone. JOINT SPACES: Slight narrowing of the proximal and distal interphalangeal joints. No tarsal coalition . SOFT TISSUES: Normal. IMPRESSION: No definite acute osseous abnormality left foot. Healing fracture in the superior aspect of the navicular bone versus an osteophyte. Slight narrowing of the proximal and distal phalangeal joints which may be osteoarthritic. Reviewed, dictated and finalized at location A. IMPRESSION: No definite acute osseous abnormality left foot. Healing fracture in the superior aspect of the navicular bone versus an osteoph yte. Slight narrowing of the proximal and distal phalangeal joints which may be oste oarthritic.
--- NOTE | ~2024-07-13 | XR_ITS ---
XR ankle RT 2V Ordering provider: Jamia Patrick, SENIOR TECHNICAL SUPPORT ENGINEER History: . MULTIPLE JOINT PAIN hx lupus . Comparison: None. FINDINGS: BONES: No acute fracture or dislocation. Calcaneus spur. Lucency seen in the distal fibula is most likely positional. JOINT SPACES: Normal. SOFT TISSUES: Normal. IMPRESSION: No acute osseous abnormality of the right ankle. Reviewed, dictated and finalized at location A.
--- NOTE | ~2024-07-13 | XR_ITS ---
XR foot RT 2V Ordering provider: Jamia Patrick, FISHING REEL ASSEMBLER History: . MULTIPLE JOINT PAIN, hx lupus . Comparison: None. FINDINGS: BONES: No acute fracture or dislocation. Calcaneal spur is noted. JOINT SPACES: Narrowing of the proximal and distal interphalangeal joints. No tarsal coalition. SOFT TISSUES: Normal. IMPRESSION: No acute osseous abnormality of the right foot. 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
--- NOTE | ~2024-07-13 | XR_ITS ---
XR wrist RT 2V Ordering provider: Jamia Patrick, BEAD STRINGER History: . MULTIPLE JOINT PAIN, hx lupus . Comparison: None. FINDINGS: BONES: No acute fracture or dislocation. No definite scaphoid fracture. Cystic changes seen in the t rapezium bone most likely degenerative. JOINT SPACES: Normal. SOFT TISSUES: Normal. IMPRESSION: No acute osseous abnormality right wrist. Reviewed, dictated and finalized at location A.
== END 2024-07-13 12:27 | disposition home or self-care (01) ==
LOC: ANHIMG 12:33
PROVIDERS: PCP Nurse Practitioner Adult Health; Visit Provider Nurse Practitioner
DX: M25.50 Pain in unspecified joint (principal); S92.252A Displaced fracture of navicular [scaphoid] of left foot, initial encounter for closed fracture; X58.XXXA Exposure to other specified factors, initial encounter
CPT/HCPCS: 72202; 73100; 73120; 73600; 73620

== ENCOUNTER 2024-07-25 10:47 | Outpatient (CLI) | payer MEDICARE, OTHER, SELFPAY ==
[2024-07-25 19:46] LABS: Uric Acid 7.3 mg/dL (2.5-7.5)
== END 2024-07-25 10:48 | disposition home or self-care (01) ==
LOC: ANHBWCLAB 10:49
PROVIDERS: PCP Nurse Practitioner Adult Health; Visit Provider Nurse Practitioner Adult Health
DX: M10.9 Gout, unspecified (principal)
CPT/HCPCS: 36415; 84550

== ENCOUNTER 2024-08-15 14:44 | Outpatient (CLI) | payer MEDICARE, OTHER, SELFPAY ==
[2024-08-15 15:07] LABS: Basophils Absolute Auto 0.1 K/mm3 (0.0-0.1); Basophils Percent Auto 0.9 % (0.2-1.2); Eosinophils Absolute Auto 0.1 K/mm3 (0-0.3); Eosinophils Percent Auto 2.1 % (0-4.4); Hematocrit 42.1 % (37.0-47.0); Hemoglobin 13.9 g/dL (12.0-15.0); Immature Granulocyte Absolute 0.01 K/mm3 (0.00-0.031); Immature Granulocyte Percent A 0.2 % (0-0.5); Lymphocytes Absolute Auto 1.83 K/mm3 (0.9-3.2); Lymphocytes Percent Auto 34.4 % (18.3-44.2); Mean Corpuscular Hemoglobin 30.2 pg (26-34); Mean Corpuscular Volume 91.3 fl (80-100); Mean Platelet Volume 8.8 fl (7.4-10.4); Monocytes Absolute Auto 0.5 K/mm3 (0.1-0.6); Monocytes Percent Auto 10.2 % (2.6-8.5); Neutrophils Absolute Auto 2.8 K/mm3 (1.3-6.7); Neutrophils Percent Auto 52.2 % (45.5-73.1); Platelet Count Result 244 k/mm3 (150-375); Red Blood Count 4.61 M/mm3 (4.2-5.4); Red Cell Distribution Width 12.4 % (11.5-14.5); White Blood Count 5.3 K/mm3 (4.5-10.0)
[2024-08-15 16:35] LABS: Alanine Aminotransferase 30 U/L (6-35); Albumin Level 4.4 g/dL (3.5-5.1); Alkaline Phosphatase 119 U/L (38-126); Anion Gap 11 mmol/L (4-12); Aspartate Amino Transferase 31 U/L (14-36); Bilirubin,Total 0.2 mg/dL (0.2-1.3); Blood Urea Nitrogen 19 mg/dL (7-17); Calcium 9.2 mg/dL (8.4-10.2); Carbon Dioxide 26 mmol/L (22-30); Chloride 102 mmol/L (98-107); Estimated Glomerular Filt Rate 55; Glucose 111 mg/dL (65-110); Potassium 4.1 mmol/L (3.4-5.0); Sodium 139 mmol/L (137-145)
[2024-08-15 16:40] LABS: Immunoglobulin A 566 mg/dL (70-400); Immunoglobulin G 834 mg/dL (700-1600); Immunoglobulin M 39 mg/dL (40-230)
[2024-08-17 03:14] LABS: Protein, Total 6.9 g/dL (6.1-8.1)
[2024-08-18 11:53] LABS: Albumin 3.8 g/dL (3.8-4.8); Alpha 1 Globulin 0.3 g/dL (0.2-0.3); Alpha 2 Globulin 0.8 g/dL (0.5-0.9); Beta 1 Globulin 0.5 g/dL (0.4-0.6); Gamma Globulin 0.8 g/dL (0.8-1.7)
[2024-08-18 13:48] LABS: Kappa\\Lambda Light Chains 1.06 (0.26-1.65); Lambda Light Chain 25.8 mg/L (5.7-26.3)
== END 2024-08-15 14:45 | disposition home or self-care (01) ==
PROVIDERS: PCP Nurse Practitioner Adult Health; Visit Provider Internal Medicine Hematology & Oncology
DX: D72.9 Disorder of white blood cells, unspecified (principal)
CPT/HCPCS: 36415; 80053; 82784; 83883; 84155; 84165; 85025

== ENCOUNTER 2024-10-11 14:52 | Emergency (ER) | payer MEDICARE, OTHER, SELFPAY ==
--- NOTE | ~2024-10-11 | XR_ITS ---
EXAMINATION: XR chest 2V DATE: 10/11/2024 15:26 INDICATION: Chest pain. Cough. TECHNIQUE: Frontal and lateral views of the chest were obtained. COMPARISON: Chest 2 views 11/02/2022 FINDINGS: There is no pneumonia, pleural effusion, or pneumothorax. The heart size is normal. Surgica l clips in the right upper quadrant are likely from cholecystectomy. IMPRESSION: 1. No acute cardiopulmonary disease. Reviewed, dictated and finalized at location A. MO PROCESSOR
--- NOTE | 2024-10-11 14:55 | ECG_ITS ---
Test Date: 2024-10-11 15:01:18 Measurements Intervals [place] Rate: 93 P: -5 WV: 188 QRS: 2 QRSD: 78 T: 1 QT: 364 QTc: 453 Interpretive Statements SINUS RHYTHM WITH OCCASIONAL VENTRICULAR PREMATURE COMPLEXES INFERIOR INFARCT, AGE INDETERMINATE BASELINE ARTIFACT- I, II, AVR, AVL, AVF, V4-V6 ABNORMAL ECG No previous ECG available for comparison Electronically Signed On 10-11-2024 15:27:08 [employer]ER by Abdirashid Richey D.O.
[2024-10-11 14:56] VITALS: BP 151/103; PULSE 98; RESP 14; TEMP 36.7; O2SAT 99
--- NOTE | 2024-10-11 15:07 | ED.CHESTPAIN ---
HPI - Chest Pain General Chief Complaint: Chest Pain Stated Complaint: cp Time Seen by Provider: 10/11/24 15:07 Focused HPI: This is a 69 year old female that presents to the ER for chest pain. Reports she was at her mother's doctors appointment. Reports she started to have chest pain and shortness of breath. The chest pain was relieved with baby aspirin and nitro. She does still have some shortness of breath. Denies lower extremity edema. GENERAL: Well-appearing, well-nourished, and in no acute distress. HEAD: Normocephalic, atraumatic. CHEST: Clear to auscultation. ?No respiratory distress. HEART: Regular rate and rhythm.? NEURO: ?Alert and oriented x3. Patient screened in triage and initial orders placed.? ?Additional care and disposition to be based upon?diagnostic testing and treatment. Related Data Home Medications Medication Instructions Recorded Confirmed aspirin 81 mg tablet,delayed 81 mg PO DAILY 08/28/24 09/28/24 release cholecalciferol (vitamin D3) 50 50 mcg PO DAILY 08/28/24 09/28/24 mcg (2,000 unit) capsule metoprolol succinate 25 mg 25 mg PO DAILY 09/28/24 09/28/24 tablet,extended release 24 hr Allergies Allergy/AdvReac Type Severity Reaction Status Date / Time iodine Allergy Swelling Verified 09/28/24 07:38 codeine AdvReac Severe Nausea and Verified 10/11/24 14:58 Vomiting morphine AdvReac Nausea and Verified 10/11/24 14:58 Vomiting PMFSH Past Medical History Medical History (Updated 10/11/24 @ 18:39 by Maryam Chin PA-C) Depression HTN (hypertension) Trigeminal nerve disorder Surgical History Surgical History History of breast reconstruction History of delivery History of cholecystectomy History of cosmetic plastic surgery excess skin removal History of hernia repair Family History Family History (Updated 05/22/24 @ 14:26 by Dayana Phelan MA) Father Heart disease Depression Hypertension History of ETOH abuse Sibling History of ETOH abuse Grandparent History of ETOH abuse Hypertension Heart disease Depression Social History Social History (Updated 05/30/24 @ 13:18 by Dayana Phelan MA) Smoking status: Never smoker Alcohol intake: current Alcohol use details: drink on May Substance use: current Substance use type: marijuana Other substance usage details: gummies Last use: 07/08/22 Do You Feel Safe in your Home?: No Lack of Transportation: No Lack of Food: Never True Current Housing: I Have Housing Concerned About Future Housing: No Difficulty Paying Gas/Electric Bills: No Difficulty Paying for Meds: No Currently Unemployed: No Education: Master's Degree or Higher Difficulty w/ Childcare or Family Care: No Living arrangements: with family Gender identity (if verbalized by the patient): Female Spiritual care concerns: No Course Vital Signs Vital signs: Vital Signs Temperature 98.1 F 10/11/24 14:56 Pulse Rate 98 10/11/24 14:56 Respiratory Rate 14 10/11/24 14:56 Blood Pressure 151/103 H 10/11/24 14:56 Pulse Oximetry 99 10/11/24 14:56 Temperature 98.1 F 10/11/24 14:56 Pulse Rate 98 10/11/24 14:56 Respiratory Rate 14 10/11/24 14:56 Blood Pressure 151/103 H 10/11/24 14:56 Pulse Oximetry 99 10/11/24 14:56 Discharge Plan Discharge Clinical Impression: Chest pain Patient Disposition: Elopement After Seen by Prov Condition: Guarded Prognosis Prescriptions: No Action aspirin 81 mg tablet,delayed release (DR/EC) 81 mg PO DAILY cholecalciferol (vitamin D3) 50 mcg (2,000 unit) capsule 50 mcg PO DAILY metoprolol succinate 25 mg tablet extended release 24 hr 25 mg PO DAILY amlodipine 5 mg tablet 5 mg PO DAILY Qty: 90 3RF ezetimibe [Zetia] 10 mg tablet 10 mg PO DAILY Qty: 90 3RF rosuvastatin 5 mg tablet 5 mg PO DAILY Qty: 90 3RF metformin 500 mg tablet 500 mg PO DAILY Qty: 90 3RF omeprazole 40 mg capsule,delayed release(DR/EC) 40 mg PO DAILY Qty: 90 3RF metoclopramide HCl 5 mg tablet See Rx Instructions .ROUTE .COMPLEX Qty: 120 1RF Dose Instruction: TAKE 1 TABLET BY MOUTH EVERY 6 HOURS NEEDED FOR NAUSEA AND VOMITING Rx Instructions: TAKE 1 TABLET BY MOUTH EVERY 6 HOURS NEEDED FOR NAUSEA AND VOMITING Follow-up/Referrals: Nayana Mayo APRN [Primary Care Provider] -
--- NOTE | 2024-10-11 16:28 | PC.NURSE ---
pt to desk, stating she will follow up with cardiology in the morning but does not want to wait. pt advised to return if symptoms returned.
== END 2024-10-11 18:51 | disposition left against medical advice (07) ==
PROVIDERS: Emergency Provider Physician Assistant; PCP Nurse Practitioner Adult Health
DX: R07.9 Chest pain, unspecified (principal); I10 Essential (primary) hypertension; Z90.49 Acquired absence of other specified parts of digestive tract; Z79.82 Long term (current) use of aspirin; Z79.899 Other long term (current) drug therapy; Z79.84 Long term (current) use of oral hypoglycemic drugs; I49.3 Ventricular premature depolarization; R94.31 Abnormal electrocardiogram [ECG] [EKG]
CPT/HCPCS: 71046; 93005; 99283

== ENCOUNTER 2024-11-07 08:54 | Outpatient (CLI) | payer MEDICARE, OTHER, SELFPAY ==
[2024-11-07 20:28] LABS: Alanine Aminotransferase 28 U/L (6-35); Albumin Level 4.2 g/dL (3.5-5.1); Alkaline Phosphatase 102 U/L (38-126); Anion Gap 8 mmol/L (4-12); Aspartate Amino Transferase 49 U/L (14-36); Bilirubin,Total 0.7 mg/dL (0.2-1.3); Blood Urea Nitrogen 14 mg/dL (7-17); Calcium 9.5 mg/dL (8.4-10.2); Carbon Dioxide 28 mmol/L (22-30); Chloride 103 mmol/L (98-107); Cholesterol 164 mg/dL (0-200); Estimated Glomerular Filt Rate > 60; Glucose 97 mg/dL (65-110); HDL Direct 45 mg/dL; Potassium 3.9 mmol/L (3.4-5.0); Sodium 139 mmol/L (137-145); Triglycerides 183 mg/dL (<150)
[2024-11-07 20:39] LABS: LDL Cholesterol Direct 72 mg/dL
[2024-11-07 20:48] LABS: Vitamin D 25 Hydroxy 30.5 ng/mL
== END 2024-11-07 08:55 | disposition home or self-care (01) ==
PROVIDERS: PCP Nurse Practitioner Adult Health; Visit Provider Nurse Practitioner Adult Health
DX: E55.9 Vitamin D deficiency, unspecified (principal); I10 Essential (primary) hypertension
CPT/HCPCS: 36415; 80053; 80061; 82306

== ENCOUNTER 2025-02-03 07:42 | Outpatient (CLI) | payer MEDICARE, OTHER, SELFPAY ==
--- NOTE | ~2025-02-03 | MM_ITS ---
EXAMINATION: MM screening josé luis BI w zahraa HISTORY: Screening mammogram, family history of breast cancer in her mother. TECHNIQUE: Craniocaudal and mediolateral oblique 3-D tomosynthesis images were obtained and synthetic 2-D images were generated. CAD analysis was submitted and interpreted. COMPARISON: No prior mammogram is available for comparison at this institution. BREAST PARENCHYMAL COMPOSITION:Not Dense. The breasts are almost entirely fatty FINDINGS: There is asymmetric density at the upper, outer left breast posteriorly. No suspicious abno rmality of the right breast. No suspicious mesenteric or dislocations. IMPRESSION: Upper, outer left breast asymmetric density. Spot compression views, and possibly ultrasound, recomm ended for further evaluation. BI-RADS Category 0: Incomplete: Needs additional imaging evaluation. Reviewed, dictated and finalized at [facility]. IMPRESSION: Upper, outer left breast asymmetric density. Spot compression views, and possi rosa maria ultrasound, recommended for further evaluation. BI-RADS Category 0: Incomplete: Needs additional imaging evaluation.
--- OUTSIDE RECORDS SUMMARY | 2025-02-03 07:48 | XMS_ITS | Data Portability ---
Author Organization [facility], [facility] Address [address] [address] Assessment No assessment recorded. Plan of Treatment Reminders Order Date Submit Date Provider Last Modified By Organization Details Last Modified Time Details Appointments None record ed. Lab None record ed. Referral None record ed. Procedures None record ed. Surgeries None record ed. Imaging XR, knee - rm 15 023 02/02/20 23 [email or web address] Not available 3 15:34:54 Medication Orders None record ed. Patient TargetsNo targets recorded. Patient InstructionsNo instructions recorded. Reason for Referral None Reported. Problems No Known Problems Medical Equipment None Reported. Allergies Allergen ID Allergen Name Allergen Category Reaction Reaction Severity Criticality Documentation Date Start Date Code Code System Note Provider Name and Address Organization Details Recorded Time 70800 iodine medicatio n Not available Not available Not available 02/01/2023 5933 RxNorm Madhu Monroelatoya patrick [facility], [facility] 3 11:23:55 07017 morphine medicatio n Not available Not available Not available 02/01/2023 7052 RxNorm Madhu Monroelatoya patrick [employer], [facility] 3 11:24:00 82015 codeine medicatio n Not available Not available Not available 02/01/2023 2670 RxNorm Madhu Monroelatoya patrick [employer], [facility] 3 11:24:07 91760 honey bee venom medicatio n Not available Not available Not available 02/01/2023 74756 7 RxNorm Madhu Monroelatoya patrick [employer], [facility] 3 11:24:24 Medications Name Sig Start Date Stop Date Status Note LastModified by Organization Details LastModified Time losartan 50 mg tablet TAKE 1 TABLET BY MOUTH EVERY DAY active Not Available Not Available No t Available fluconazole 150 mg tablet TAKE 1 TABLET BY MOUTH AT THE START OF ANTIBIOTI C USE AND ONE AT THE END OF ANTIBIOTI C USE 02/01 completed Not Available Not Available Not Available benzonatate 200 mg capsule TAKE 1 CAPSULE BY MOUTH THREE TIMES A DAY NEEDED FOR COUGH 02/01 completed Not Available Not Available Not Available prednisone 20 mg tablet TAKE 2 TABLETS BY MOUTH EVERY DAY FOR 5 DAYS 02/01 completed Not Available Not Available Not Available amlodipine 5 mg tablet TAKE 1 TABLET BY MOUTH EVERY DAY active Not Available Not Available No t Available oxycodone-a cetaminophe n 5 mg-325 mg tablet TAKE 1 TABLET BY MOUTH EVERY 6 HOURS NEEDED FOR PAIN 02/01 completed Not Available Not Available Not Available alprazolam 0.25 mg tablet TAKE 1 TABLET ORALLY TWICE A DAY NEEDED FOR ANXIETY active Not Available Not Available No t Available phenazopyri dine 100 mg tablet TAKE 1 TABLET BY MOUTH 3 TIMES PER DAY FOR 2 DAYS NEEDED 02/01 completed Not Available Not Available Not Available docusate sodium 100 mg capsule 100 MG ORALLY DAILY 02/01 completed Not Available Not Available Not Available metoprolol succinate ER 25 mg tablet,exte nded release 24 hr TAKE 1 TABLET BY MOUTH EVERY DAY IN THE MORNING active Not Available Not Available No t Available albuterol sulfate HFA 90 mcg/actuati on aerosol inhaler INHALE 2 PUFFS BY MOUTH FOUR TIMES DAILY NEEDED FOR SHORTNESS OF BREATH OR WHEEZING active Not Available Not Available No t Available ondansetron 4 mg disintegrat ing tablet 4 MG ORALLY EVERY 8 HOURS 02/01 completed Not Available Not Available Not Available metformin ER 500 mg tablet,exte nded release 24 hr TAKE 1 TABLET BY MOUTH EVERY DAY AT DINNER FOR 90 DAYS active Not Available Not Available No t Available doxycycline hyclate 100 mg tablet TAKE 1 TABLET BY MOUTH TWICE A DAY 02/01 completed Not Available Not Available Not Available diazepam 5 mg tablet TAKE 1 TABLET BY MOUTH THREE TIMES A DAY NEEDED FOR ANXIETY 02/01 completed Not Available Not Available Not Available enoxaparin 40 mg/0.4 mL subcutaneou s syringe INJECT 40 MG (0.4 ML) UNDER THE SKIN ONCE DAILY 02/01 completed Not Available Not Available Not Available nitrofurant oin monohydrate /macrocryst als 100 mg capsule TAKE 1 CAPSULE BY MOUTH TWICE A DAY FOR 5 DAYS active Not Available Not Available No t Available Praluent Pen 75 mg/mL subcutaneou s pen injector INJECT 75 MG UNDER SKIN EVERY 2 WEEKS X 90 DAYS active Not Available Not Available No t Available Vitals Date Recorded Body height Body mass index (BMI) Body weight Heart rate Systolic blood pressure Diastolic blood pressure Provider Name and Address Organization Details Last Updated DateTime 3 162.56 cm 34.3 kg/m2 62040.4 7 g 68 /min 120 mm[Hg] 88 mm[Hg] Madhu Ellis [employer] [facility] 11:22:43 Social History Question Answer Notes LastModified by Organizat ion Details LastModified Time Tobacco Smoking Status Never Smoker Madhu [employer] 02/01/2023 11:26:04 What Is Your Relationship Status? [email or web address] Information not available 02/01/2023 Sex: Unknown Functional Status None recorded. Mental Status None recorded. Family History Nothing Reported. Medical History Condition Response HIV or AIDS N Coronary Artery Disease N Other Cancer N Gout N Kidney Stones N Hyperthyroidism N Breast Cancer N Head Trauma/Injury N Hernia N Lung Cancer N COPD N Blood Clots N Depression N Lung Disease N Hypothyroidism N Pacemaker N Parkinson's N Anxiety Disorder N Multiple Sprains N Arthritis N Alcohol / Substance Abuse N Kidney Cancer N Cancer N Stroke N Melanoma N Neck Injury N Leg or Foot Ulcers N High Cholesterol N Skin Cancer N Liver Disease N Rheumatoid Arthritis N Fibromyalgia N Headaches N Concussion N Kidney Disease N Heart Problems N Scoliosis N Chronic use of Pain Medication N Prostate Cancer N Migraines N Thyroid Problems N Alzheimers N Autoimmune Disorder N Anemia N Multiple Sclerosis N Tendon Tear N Ulcers N Heart Attack ([place]) N Osteopenia N Diabetes N Bleeding Disorder N Seizures/Epilepsy N Cardiac Stent N Tuberculosis N A-FIB N Lymphoma N Urinary Tract Infection N Back Problems N Diverticulitis N Asthma N Lupus N Peripheral Vascular Disease N Sleep Apnea N Sleep Disorder N GERD/Reflux N Hepatitis N Aneurysm N Thyroid Cancer N Heart Disease N Pulmonary Embolism N Hypertension N Osteoporosis N Gynecological HistoryNo gynecological history recorded. Obstetrics History GPAL:G 0 P 0 0 0 0 Past Encounters Encounter ID Performer Location Encounter Start Date Encounter Closed Date Diagnosis/Indication Diagnosis SNOMED-CT Code Diagnosis ICD10 Code Diagnosis Note [id number] [facility] [address] [facility] [place]NN GARCIA [id number] 02/01/2023 10:54:06 02/01/2023 15:34:53 Pain of left knee joint 6584402220 69450 M25.562 Health Concerns Section Related Observation LastModified by Organization Detai ls LastModified Time None Recorded Concern Status LastModified by Organization Details LastModified Time None Recorded Advance Directives Directive None Recorded Payers Encounter Date Sequence Insurance Name Policy Number Policy Arredondo Covered Member ID Arredondo Member ID Guarantor Name 02/01/2023 1 MEDICARE [place]: FRANCESCA Priest [id number] Henrry Priest OBGyn Episode No OBEpisode recorded.
--- OUTSIDE RECORDS SUMMARY | 2025-02-03 07:48 | XMS_ITS | Referral Summary ---
Author Organization [facility] Address [address] [place] [address] Care Team Providers Care Sugar Reprocess Operator Head Name Role Phone Judith Leon MD Primary Care Pro vider Source Comments [facility],non-owned Affiliates and Associated Physician Practices is amultiple site organization consisting of ambulatory clinics and hospital sitesin [place], [place], [place] and [place]. This disclosure is being madepursuant to the Care Everywhere program and may not contain all information available regarding this patient. Last updated 18.[facility] Allergies Active Allergy Reactions Criticality Noted Date Comments Codeine Unknown,Swelling,Vom itin g High 09/23/2007 Iodine Urticaria,Unknown,Ot her, Swelling High 09/23/2007 swelling Morphine Nausea and/or Vomiting,Unknown,Other,S welling,Vomiting High 09/23/2007 Chest pain Chest pains, vomiting Medications * Be aware that medications may not be up to date on this document. Alwaysverify current medications with the patient. Medication Sig Dispensed Refills Start Date End Date Status amLODIPine (Norvasc) 5 MG tablet Take 2 (two) tablets by mouth once daily Active ezetimibe (Zetia) 10 MG tablet Take 1 (one) tablet by mouth once daily 01/03/2024 Active famotidine (Pepcid) 40 MG tablet Take 1 (one) tablet by mouth once daily 01/03/2024 Active isosorbide mononitrate CR 24hr (Imdur) 30 MG tablet Take 1 (one) tablet by mouth once daily 30 tablet 11 07/19/2023 Active losartan (Cozaar) 50 MG tablet Take 1 (one) tablet by mouth 2 times daily 60 tablet 11 01/03/2024 Active metFORMIN ER 24hr (Glucophage XR) 500 MG tablet TAKE 1 TABLET BY MOUTH EVERY DAY AT DINNER FOR 90 DAYS 08/17/2023 Active metoprolol succinate XL 24hr (Toprol XL) 25 MG tablet Take 1 (one) tablet by mouth every morning 01/03/2024 Active ondansetron, disintegrating, (Zofran ODT) 4 MG tablet Take 1 (one) tablet by mouth every 8 hours as needed for nausea and vomiting. 11/11/2023 Active pregabalin (Lyrica) 25 MG capsule Take 1 (one) capsule by mouth 3 times daily 01/12/2024 Active rosuvastatin (Crestor) 5 MG tablet Take 1 (one) tablet by mouth once daily 01/03/2024 Active acetaminophen (Tylenol) 500 MG tablet Take 1 (one) tablet by mouth every 4 hours as needed Maximum allowable Acetaminophen amount = 4 Grams (4000 mg) / 24 hours. Active aspirin EC (Ecotrin) 81 MG tablet Take 1 (one) tablet by mouth once daily Active diphenhydrAMINE (Benadryl) 25 MG tablet Take by mouth every 4 hours as needed Active magnesium oxide (Mag-Ox) 400 MG tablet Take 1 (one) tablet by mouth once daily Active ibuprofen (Motrin) 200 MG tablet Take by mouth every 6 hours as needed Active Cholecalciferol 50 MCG (2000 UT) Take 1 (one) tablet by mouth once daily 01/06/2024 Active ALPRAZolam (Xanax) 0.25 MG tablet Take 1 (one) tablet by mouth 2 times daily as needed for Anxiety Active oxyCODONE-acetamin ophen (Percocet) 7.5-325 MG tabletIndications: Dizziness,Trigemin al neuralgia,Brain aneurysm (HCC) Take 1 (one) tablet by mouth every 6 hours as needed 30 tablet 04/12/2024 Active Additional Information Patient not taking.Reported on 05/29/2024 carBAMazepine XR 12hr (TEGretol XR) 200 MG tabletIndications: Trigeminal neuralgia Take 2 (two) tablets by mouth 3 times daily with meals 180 tablet 2 04/12/2024 Active baclofen (Lioresal) 10 MG tabletIndications: Trigeminal neuralgia Take 1 (one) tablet by mouth 3 times daily as needed for Muscle Spasms May cause drowsiness. 90 tablet 3 04/20/2024 Active PHENobarbital 100 MG tabletIndications: Trigeminal neuralgia Take 1 (one) tablet by mouth at bedtime 90 tablet 2 04/20/2024 Active Active Problems No known active problems Resolved Problems Problem Noted Date Diagnosed Date Resolved Date Dizziness 04/11/2024 04/12/2024 Social History Tobacco Use Types Packs/Day Years Used Date Smoking Tobacco: Never Assessed Hunger Vital Sign Answer Date Recorded Within the past 12 months, y ou worried that your food would run out before you got the money to buy more. Never true 04/12/20 24 Within the past 12 months, t he food you bought just didn't last and you didn't have money to get more. Never true 04/12/2024 Sex and Gender Information Value Date Recorded Sex Assigned at Not on file Gender Identity Not on file Sexual Orientation Not on file Last Filed Vital Signs Vital Sign Reading Time Taken Comments Blood Pressure 151/95 04/12/2024 3:31 PM CDT Pulse 84 04/20/2024 12:59 PM CDT Temperature 36.9 C (98.4 F) 04/12/2024 3:31 PM CDT Respiratory Rate 17 04/12/2024 3:31 PM CDT Oxygen Saturation 99% 04/20/2024 12:59 PM CDT Inhaled Oxygen Concentration - - Weight 88.5 kg (195 lb) 05/29/2024 9:00 AM CDT Height 162.6 cm (5' 4 ) 05/29/2024 9:00 AM CDT Body Mass Index 33.47 05/29/2024 9:00 AM CDT Functional Status Functional Status Response Date of Assess ment Is person deaf or have serious hearing difficult y? No 04/12/2024 Is person blind or have serious difficulty seein g? No 04/12/2024 Does person have serious dif ficulty walking/climbing stairs? No 04/12/2024 Does person have difficulty dressing/bathing? No 04/12/2024 Does person have difficulty doing errands alone? No 04/12/2024 Cognitive Status Response Date of Assessm ent Does person have difficulty concentrating/remembering/making decisions? No 04/12/2024 Plan of Treatment Not on file Procedures Procedure Name Priority Date/Time Associated Diagnosis Comments BASIC METABOLIC PANEL (CALCIUM TOTAL) AM Draw 04/12/2024 1:31 AM CDT Dizziness from Last 3 Months or Most Recently Relevant to Health Maintenance Results * (ABNORMAL) BASIC METABOLIC PANEL (CALCIUM TOTAL) (04/12/2024 1:31 AM CDT) Glucose 122(H) 70 - 105 mg/dL 04/12/2024 2:37 AM CDT [facility] Sodium 141 136 - 145 mmol/L 04/12/2024 2:37 AM CDT [facility] Potassium 3.6 3.5 - 5.1 mmol/L 04/12/2024 2:37 AM CDT [facility] Chloride 109(H) 98 - 107 mmol/L 04/12/2024 2:37 AM CDT [facility] CO2 24 22 - 29 mmol/L 04/12/2024 2:37 AM CDT [facility] Calcium 9.1 8.4 - 10.4 mg/dL 04/12/2024 2:37 AM CDT [facility] Anion Gap 8 6 - 16 mmol/L 04/12/2024 2:37 AM CDT [facility] BUN 17 7 - 26 mg/dL 04/12/2024 2:37 AM CDT [facility] Creatinine 0.81 0.57 - 1.11 mg/dL 04/12/2024 2:37 AM CDT [facility] eGFR by CKD-EPI 80(L) >=90 mL/min/1.7 3 m2 04/12/2024 2:37 AM CDT [facility] Blood BLOOD SPECIMEN / Unknown Venipuncture / Unknown 04/12/2024 1:31 AM CDT 04/12/2024 2:18 AM CDT Everette Gomez MD LAB - CHEMISTRY [facility] Organization Address City/State/ZIP Co de Phone Number [facility] [address] [place] [address] from Last 3 Months or Most Recently Relevant to Health Maintenance Advance Directives * Full Code (Latest Code Status on File) Date Activated Date Inactivated Comments 04/11/2024 7:08 PM 04/12/2024 6:00 PM Care Teams Sugar Reprocess Operator Head Relationship Specialty Start Date End Date Judith Leon MD [address] [place] [id number] PCP - General Family Medicine 04/12/24
--- OUTSIDE RECORDS SUMMARY | 2025-02-03 07:48 | XMS_ITS | CONTINUITY OF CARE DOCUMENT ---
Author Name jurichardgreta Address Unknown Organization 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 Name Role Phone Javier Leavitt MD Unavailable TAMARA PACHECO MD Unavailable TAMARA PACHECO MD Unavailable PROBLEMS Condition Status Date Provider Notes Cardiology examination active Javier Leavitt MD Shortness of breath active Javier Leavitt MD Chest pain active Javier Leavitt MD Hyperlipidemia active Javier Leavitt MD Diabetes mellitus active Javier Leavitt MD Snoring active Javier Leavitt MD HTN essential active Javier Leavitt MD ENCOUNTERS Date Type Provider Location Encounter Diag nosis - In-person encounter Office Visit Javier Leavitt MD [facility] Diabetes mellitusSnoringHTN essential - In-person encounter Office Visit Javier Leavitt MD [facility] Cardiology examinationShortness of breathChest painHyperlipidemia VITAL SIGNS Date Observation Value Provider Body Mass Index (Ratio) 34.67 kg/m2 Halle Leavitt MD blood pressure, diastolic 105 mm[Hg] Angelica Valentine blood pressure, systolic 154 mm[Hg] Christopher yu Serge oxygen saturation, oximetry 96 % Akua Valentine pulse rate 90 /min Akua laboy weight E&M 202 [lb_av] Akua laboy respiratory rate E&M 16 /min Vee Valentine height E&M 64 [in_i] Akua laboy Body Mass Index (Ratio) 35.01 kg/m2 Halle eLavitt MD blood pressure, diastolic 94 mm[Hg] [place] blood pressure, systolic 132 mm[Hg] Ifrah Sabillon blood pressure, cuff size large [place] oxygen saturation, oximetry 97 % [place] Sabillon respiratory rate E&M 14 /min [place] severinoenenfwan pulse rate 109 /min [place] Ohara lder weight E&M 204 [lb_av] [place] Yassinee lder height E&M 64 [in_i] [place] dosser ALLERGIES Allergy Name Onset Date Reaction Criticality Status STATINS myalgias myalgias High Criticality a ctive MORPHINE High Criticality active CODEINE High Criticality active IODINE High Criticality active HISTORY OF MEDICATION USE Medication Status Instructions Dates Provider Indications Com ments ezetimibe 10 mg tablet active Take 1 tablet by mouth once a day Akua Valentine benzonatate 200 mg capsule active TAKE 1 CAPSULE BY MOUTH THREE TIMES A DAY NEEDED FOR COUGH Akau Valentine metformin 500 mg tablet extended release 24 hr active Take 1 tablet by mouth once a day Akua Valentine metoprolol succinate 25 mg tablet extended release 24 hr active Take 1 tablet by mouth once a day Akua Valentine losartan 50 mg tablet active Take 1 tablet by mouth once a day Sai Wilkerson RN amlodipine 10 mg tablet active Take 1 tablet by mouth once a day Javier Leavitt MD Praluent Pen 150 mg/mL pen injector active Inject 1 pen injector subcutaneously once every two weeks Sai Wilkerson RN Hyperlipidemia Repatha Pushtronex 420 mg/3.5 mL wearable injector completed Inject 3.5 ml subcutaneously once a month - Raya Joce benzonatate 200 mg capsule completed TAKE 1 CAPSULE BY MOUTH THREE TIMES A DAY NEEDED FOR COUGH - Javier Leavitt MD SOCIAL HISTORY Date Observation Value Provider social history E&M S moking History: Jr lim has never smoked. Javier Leavitt MD social history reviewed E&M revi ewed - no changes required Javier Leavitt MD smoking status Never smoker Akua Dsouza and drug use no Javier Leavitt MD alcohol use no Javier Leavitt MD social history E&M S moking History: Jr lim has never smoked. Javier Leavitt MD social history reviewed E&M revi ewed - no changes required Javier Leavitt MD smoking status Never smoker [place] marmolejo INSURANCE PROVIDERS Payer name Policy type / Coverage type [place] [employer] ID [place] [employer] Medicare [employer] [id number] [place] [id number] ADVANCE DIRECTIVES Name Date DISCUSSED - NO DECISION MADE TREATMENT PLAN Date Name Performer [id number],C, H er updated medication list for this problem includes: Metformin 500 Mg Tablet Extended Release 24 Hr (Metformin) ..... Take 1 tablet by mouth once a day Losartan 50 Mg Tablet (Losartan) ..... Take 1 tablet by mouth once a day Javier Leavitt MD [id number],C,Home sleep st [facility] Javier Leavitt MD [id number],C, H er updated medication list for this problem includes: Ezetimibe 10 Mg Tablet (Ezetimibe) ..... Take 1 tablet by mouth once a day Praluent Pen 150 Mg/ml Pen Injector (Alirocumab) ..... Inject 1 pen injector subcutaneously once every two weeks Javier Leavitt MD [id number],C, W orsening chest tightness. BP elevated significantly. Will hold off on stress test at this time until BP can be controlleed. Check coronary calcium score as she has extensive family hx of CAD. Javier Leavitt MD [id number],C,I ncrease amlodipine to 10 mg. Enroll in RPM D iscussion of benefits for remote patient monitoring took place. Patient gives consent for remote monitoring of physiologic parameters including, but not limited to, weight, blood pressure, pulse oximetry, respiratory flow rate. BP today: 154/105 P rior BP: 132/94 (12/11/2022) Her updated medication list for this problem includes: Amlodipine 10 Mg Tablet (Amlodipine) ..... Take 1 tablet by mouth once a day Metoprolol Succinate 25 Mg Tablet Extended Release 24 Hr (Metoprolol succinate) ..... Take 1 tablet by mouth once a day Losartan 50 Mg Tablet (Losartan) ..... Take 1 tablet by mouth once a day Javier Leavitt MD [id number],C,a llergic to statins h as LDL>180 w ill try to get [id number] Javier Leavitt MD [id number],B,will check a routine stress test Javier Leavitt MD [id number],C,i mproved. will check an echo as a baseline. Javier Leavitt MD Cardiology: H er updated medication list for this problem includes: Metformin 500 Mg Tablet Extended Release 24 Hr (Metformin) ..... Take 1 tablet by mouth once a day Losartan 50 Mg Tablet (Losartan) ..... Take 1 tablet by mouth once a day Javier Leavitt MD Cardiology:Home sleep study Halle Leavitt MD Cardiology: H er updated medication list for this problem includes: Ezetimibe 10 Mg Tablet (Ezetimibe) ..... Take 1 tablet by mouth once a day Praluent Pen 150 Mg/ml Pen Injector (Alirocumab) ..... Inject 1 pen injector subcutaneously once every two weeks Javier Leavitt MD Cardiology: W orsening chest tightness. BP elevated significantly. Will hold off on stress test at this time until BP can be controlleed. Check coronary calcium score as she has extensive family hx of CAD. Javier Leavitt MD Cardiology:Increase amlodipine to 10 mg. Enroll in RPM D iscussion of benefits for remote patient monitoring took place. Patient gives consent for remote monitoring of physiologic parameters including, but not limited to, weight, blood pressure, pulse oximetry, respiratory flow rate. BP today: 154/105 P rior BP: 132/94 (12/11/2022) Her updated medication list for this problem includes: Amlodipine 10 Mg Tablet (Amlodipine) ..... Take 1 tablet by mouth once a day Metoprolol Succinate 25 Mg Tablet Extended Release 24 Hr (Metoprolol succinate) ..... Take 1 tablet by mouth once a day Losartan 50 Mg Tablet (Losartan) ..... Take 1 tablet by mouth once a day Javier Leavitt MD Cardiology:allergic to statins h as LDL>180 w ill try to get [id number] Javier Leavitt MD Cardiology:will check a routine stress test Javier Leavitt MD Cardiology:improved. will check an echo as a baseline. Javier Leavitt MD Date Name CT, Coronary Calcium Score Sleep Study Home RPM (remote patient monitoring) Stress Routine Complete Echo HISTORY OF PROCEDURES Procedure Date Procedure Name Provider Procedure Notes S tatus EKG Javier Leavitt MD completed
--- OUTSIDE RECORDS SUMMARY | 2025-02-03 07:48 | XMS_ITS | Patient Health Summary ---
Author Organization [facility] Address [address] [place] [address] Care Team Providers Care Kiln Burner Name Role Phone Judith Leon MD Primary Care Pro vider Note from [facility],non-owned Affiliates and Associated Physician Practices is amultiple site organization consisting of ambulatory clinics and hospital sitesin [place], [place], [place] and [place]. This disclosure is being madepursuant to the Care Everywhere program and may not contain all information available regarding this patient. Last updated 18.[facility] Allergies * Codeine(Unknown,Swelling,Vomiting) -High Criticality * Iodine(Urticaria,Unknown,Other,Swelling) -High Criticality * Morphine(Nausea and/or Vomiting,Unknown,Other,Swelling,Vomiting) -High Criticality Medications * Be aware that medications may not be up to date on this document. Alwaysverify current medications with the patient. * amLODIPine (Norvasc) 5 MG tablet Take 2 (two) tablets by mouth once daily * ezetimibe (Zetia) 10 MG tablet(Started 01/03/2024) Take 1 (one) tablet by mouth once daily * famotidine (Pepcid) 40 MG tablet(Started 01/03/2024) Take 1 (one) tablet by mouth once daily * isosorbide mononitrate CR 24hr (Imdur) 30 MG tablet(Started 07/19/2023) Take 1 (one) tablet by mouth once daily 11 refills remaining * losartan (Cozaar) 50 MG tablet(Started 01/03/2024) Take 1 (one) tablet by mouth 2 times daily 11 refills remaining * metFORMIN ER 24hr (Glucophage XR) 500 MG tablet(Started 08/17/2023) TAKE 1 TABLET BY MOUTH EVERY DAY AT DINNER FOR 90 DAYS * metoprolol succinate XL 24hr (Toprol XL) 25 MG tablet(Started 01/03/2024) Take 1 (one) tablet by mouth every morning * ondansetron, disintegrating, (Zofran ODT) 4 MG tablet(Started 11/11/2023) Take 1 (one) tablet by mouth every 8 hours as needed for nausea and vomiting. * pregabalin (Lyrica) 25 MG capsule(Started 01/12/2024) Take 1 (one) capsule by mouth 3 times daily * rosuvastatin (Crestor) 5 MG tablet(Started 01/03/2024) Take 1 (one) tablet by mouth once daily * acetaminophen (Tylenol) 500 MG tablet Take 1 (one) tablet by mouth every 4 hours as needed Maximum allowable Acetaminophen amount = 4 Grams (4000 mg) / 24 hours. * aspirin EC (Ecotrin) 81 MG tablet Take 1 (one) tablet by mouth once daily * diphenhydrAMINE (Benadryl) 25 MG tablet Take by mouth every 4 hours as needed * magnesium oxide (Mag-Ox) 400 MG tablet Take 1 (one) tablet by mouth once daily * ibuprofen (Motrin) 200 MG tablet Take by mouth every 6 hours as needed * Cholecalciferol 50 MCG (2000 UT)(Started 01/06/2024) Take 1 (one) tablet by mouth once daily * ALPRAZolam (Xanax) 0.25 MG tablet Take 1 (one) tablet by mouth 2 times daily as needed for Anxiety * oxyCODONE-acetaminophen (Percocet) 7.5-325 MG tablet(Started 04/12/2024) Take 1 (one) tablet by mouth every 6 hours as needed * carBAMazepine XR 12hr (TEGretol XR) 200 MG tablet(Started 04/12/2024) Take 2 (two) tablets by mouth 3 times daily with meals 2 refills by 04/12/2025 * baclofen (Lioresal) 10 MG tablet(Started 04/20/2024) Take 1 (one) tablet by mouth 3 times daily as needed for Muscle Spasms May cause drowsiness. 3 refills by 04/20/2025 * PHENobarbital 100 MG tablet(Started 04/20/2024) Take 1 (one) tablet by mouth at bedtime 2 refills by 10/17/2024 Active Problems No known active problems Resolved [...] Mass Index 33.47 05/29/2024 9:00 AM CDT Procedures * MRI BRAIN WWO CONTRAST(Performed 06/14/2024) Performed for Aneurysm (HCC) * CARDIAC RHYTHM STRIP ORDER(Performed 04/19/2024) * CARDIAC EKG ORDER(Performed 04/13/2024) * ECHO COMPLETE W BUBBLE STUDY(Performed 04/12/2024) Performed for Dizziness * IR CAROTID CEREBRAL ANGIOGRAM(Performed 04/12/2024) Performed for Brain aneurysm (HCC) * GLUCOSE - POINT OF CARE(Performed 04/12/2024) * GLUCOSE - POINT OF CARE(Performed 04/12/2024) * LIPID PROFILE(Performed 04/12/2024) Performed for Dizziness * BASIC METABOLIC PANEL (CALCIUM TOTAL)(Performed 04/12/2024) Performed for Dizziness * TROPONIN-I HIGH SENSITIVE BASELINE + 1HR(Performed 04/11/2024) Performed for Dizziness * CARBAMAZEPINE LEVEL TOTAL+ FREE PANEL(Performed 04/11/2024) Performed for Dizziness, Trigeminal neuralgia * TROPONIN-I HIGH SENSITIVE REFLEX 1HOUR(Performed 04/11/2024) * GLUCOSE - POINT OF CARE(Performed 04/11/2024) * MRI BRAIN WO CONTRAST(Performed 04/11/2024) Performed for Dizziness * CT ANGIO BRAIN NECK STROKE(Performed 04/11/2024) Performed for Dizziness * TYPE + SCREEN PANEL(Performed 04/11/2024) * B-TYPE NATRIURETIC PEPTIDE(Performed 04/11/2024) * TROPONIN-I HIGH SENSITIVE BASELINE + 1HR(Performed 04/11/2024) * PTT(Performed 04/11/2024) * PT-INR(Performed 04/11/2024) * COMPREHENSIVE METABOLIC PANEL(Performed 04/11/2024) * CBC W AUTO DIFFERENTIAL(Performed 04/11/2024) * CREATININE - POCT INTERFACED(Performed 04/11/2024) * INR WHOLE BLOOD - POINT OF CARE (IP) STROKE(Performed 04/11/2024) * EKG 12-LEAD(Performed 04/11/2024) Performed for Dizziness * CT BRAIN STROKE(Performed 04/11/2024) Performed for Dizziness * MRI IAC AND BRAIN WWO CONT(Performed 02/07/2024) Performed for Trigeminal neuralgia * MRI ANGIO BRAIN ARTERIAL WO CONT(Performed 02/07/2024) Performed for Trigeminal neuralgia * CREATININE - POCT INTERFACED(Performed 02/07/2024) Results * MRI BRAIN WWO CONTRAST (06/14/2024 10:59 AM CDT) Anatomical Region Laterality Modality Head Magnetic Resonan ce 06/14/2024 1:30 PM CDT Impressions 06/14/2024 1:37 PM CDT IMPRESSION: Vascular tortuosity. No brainstem or skull base abnormality identified. Moderate deep white matter small vessel ischemic changes > Interpreting Provider: Genaro Malcolm MD on 06/14/2024 1:37 PM Narrative 06/14/2024 1:37 PM CDT MRI Brain With and Without Contrast Indication: Cerebral aneurysm, trigeminal neuralgia Technique: Multisequence, multiplanar sequences of the brain with and without contrast, was administered. Comparison April 11, 2024. Comparison CT angiogram April 11, 2024. Correlation catheter angiogram April 12, 2024 Findings: There is no restricted diffusion to denote an acute ischemic insult. No proteinaceous extra-axial fluid collection. No skull base area of restricted diffusion. The muscles of mastication are symmetric. The right mastoid continues to have fluid. The nasopharyngeal soft tissues look symmetric. The cavernous sinuses show Meckel's caves but otherwise normal. Tortuous basilar with a dominant right vertebral artery with basilar ectasia. Dilated perivascular spaces to the perforating vessels of the basal ganglia lacunar infarct left basal ganglia. No obstructive hydrocephalus. No sinus fluid levels. Intraocular lens prostheses. No intraparenchymal blood degradation products. High signal intensity within the periventricular white matter consistent with moderate severity sequela of deep white matter small ischemic changes. This extends to the centrum semiovale extending subcortical as well. No cortically-based area of encephalomalacia. Postcontrast, no abnormal brain parenchymal or dural contrast enhancement. No jugular foramen region mass. No cavernous sinus mass. Procedure Note Genaro Malcolm MD - 06/14/2024 MRI Brain With and Without Contrast Indication: Cerebral aneurysm, trigeminal neuralgia Technique: Multisequence, multiplanar sequences of the brain with and without contrast, was administered. Comparison April 11, 2024. ComparisonCT angiogram April 11, 2024. Correlation catheter angiogram April 12, 2024 Findings: There is no restricted diffusion to denote an acute ischemic insult. No proteinaceous extra-axial fluid collection. No skull base area of restricted diffusion. The muscles of mastication are symmetric. The right mastoid continues to have fluid. The nasopharyngeal soft tissues look symmetric. Thecavernous sinuses show Meckel's caves but otherwise normal. Tortuous basilar witha dominant right vertebral artery with basilar ectasia. Dilatedperivascular spaces to the perforating vessels of the basal ganglia lacunar infarctleft basal ganglia. No obstructive hydrocephalus. No sinus fluid levels. Intraocular lens prostheses. No intraparenchymal blood degradation products. High signal intensity within the periventricular white matter consistent with moderateseverity sequela of deep white matter small ischemic changes. This extends to the centrum semiovale extending subcortical as well. No cortically-basedarea of encephalomalacia. Postcontrast, no abnormal brain parenchymal or dural contrastenhancement. No jugular foramen region mass. No cavernous sinus mass. IMPRESSION: Vascular tortuosity. No brainstem or skull base abnormality identified. Moderate deep white matter small vessel ischemic changes > Interpreting Provider: Genaro Malcolm MD on 06/14/2024 1:37 PM Flores Lehman MD MR ORDERABLES * CARDIAC RHYTHM STRIP ORDER (04/19/2024 7:51 AM CDT) Narrative 04/19/2024 7:51 AM CDT Ordered by an unspecified provider. Scanned Document CARDIAC SERVICES ORD ERABLES * CARDIAC EKG ORDER (04/13/2024 8:08 AM CDT) Narrative 04/13/2024 8:08 AM CDT Ordered by an unspecified provider. Scanned Document CARDIAC SERVICES ORD ERABLES * ECHO COMPLETE W BUBBLE STUDY (04/12/2024 2:32 PM CDT) BSA [id number] m2 SSM CV FUJI PACS LVOT stroke vol 64.89 mL SSM CV FUJI PACS LVOT stroke vol index 31.06 mL/m2 SSM CV FUJI PACS LVIDd 3.56 3.8 - 5.2 cm SSM CV FUJI PACS IVSd 2D 1.244 0.6 - 0.9 cm SSM CV FUJI PACS LVPWd 1.22 0.6 - 0.9 cm SSM CV FUJI PACS LV EDV 2D 53.099 46 - 106 mL SSM CV FUJI PACS LV EDV index 2D 25.41 29 - 61 mL/m2 SSM CV FUJI PACS LVOT diam 2.0 cm SSM CV FUJ I PACS LVOT area 3.25 cm2 SSM CV FUJ I PACS LV RWT 0.682 SSM CV FUJ I PACS IVS/LVPW 1.024 SSM CV FUJ I PACS LV mass 2D 144.701 66 - 150 g SSM CV FUJI PACS LV mass index 2D 69.25 44 - 88 g/m2 SSM CV FUJI PACS MV E pk evens 70.305 cm/s SSM CV F UJI PACS MV avg E/e' ratio 14.82 SS M CV FUJI PACS MV A pk evens 112.102 cm/s SSM CV F UJI PACS MV E A ratio 0.63 SSM CV FUJI PACS MV E' lateral evens 7.721 cm/s SS M CV FUJI PACS MV DT 254 ms SSM CV FUJ I PACS MV E' septal evens 3.424 cm/s SSM CV FUJI PACS MV E/e' septal 20.533 SSM C V FUJI PACS MV E/e' lateral 9.106 SSM CV FUJI PACS TR pk evens 236.0 cm/s SSM CV FUJ I PACS LVOT pk evens 0.91 m/s SSM CV F UJI PACS LVOT mn evens 0.61 m/s SSM CV F UJI PACS LVOT mn grad 1.7 mmHg SSM CV FUJI PACS LVOT Cardiac Output 4.4 l/min SSM CV FUJI PACS LVOT Cardiac Index 2.11 l/min/m2 SSM CV FUJI PACS LA size 3.365 2.7 - 3.8 cm SSM CV FUJI PACS LA vol BP A-L 32.217 mL SSM CV FUJI PACS TV S' evens 10.171 cm/s SSM CV FUJ I PACS TAPSE 1.712 1.7 cm SSM CV FUJ I PACS AV mn grad 6 mmHg SSM CV FU JI PACS AV pk grad 11 mmHg SSM CV FU JI PACS AV mn evens 1.17 m/s SSM CV FUJ I PACS AV pk evens 1.68 m/s SSM CV FUJ I PACS AV VTI 30.962 cm SSM CV FUJ I PACS LVOT pk grad 3.289 mmHg SSM CV FUJI PACS LVOT VTI 19.983 cm SSM CV FUJ I PACS AV area cont VTI 2.1 cm2 SSM CV FUJI PACS AV area pk evens 1.8 cm2 SSM C V FUJI PACS AV Doppler evens index pk evens 0.54 SSM CV FUJI PACS Dimensionless Index 0.645 SSM CV FUJI PACS MV PHT 74 ms SSM CV FUJ I PACS MV area PHT 2.99 cm2 SSM CV F UJI PACS MV decel slope 277.324 cm/s2 SSM C V FUJI PACS TR pk grad 22 mmHg SSM CV FU JI PACS PV pk evens 102.32 cm/s SSM CV FUJ I PACS PV pk grad 4 mmHg SSM CV FU JI PACS LA ESV A4C MOD Index 13 ml/m2 SSM CV FUJI PACS LA ESV A2C MOD Index 15 ml/m2 SSM CV FUJI PACS LV LVIDd index 1.71 2.3 - 3.1 cm/m2 SSM CV FUJI PACS Anatomical Region Laterality Modality Ultrasound Narrative 04/12/2024 6:35 PM CDT Left Ventricle: Left ventricle size is normal. Normal wall thickness. Normal systolic function with a visually estimated EF of 60 - 65%. Normal wall motion. Grade I diastolic dysfunction with normal left atrial pressure. Left Ventricle Left ventricle size is normal. Normal wall thickness. Normal systolic function with a visually estimated EF of 60 - 65%. Normal wall motion. Grade I diastolic dysfunction with normal left atrial pressure. Right Ventricle Right ventricle size is normal. Normal systolic function. Left Atrium Left atrium size is normal. Right Atrium Right atrium size is normal. IVC/SVC IVC diameter is less than or equal to 21 mm and decreases greater than 50% during inspiration; therefore the estimated right atrial pressure is normal (~3 mmHg). Mitral Valve Valve structure is normal. No restricted motion. Trace regurgitation. No stenosis. Tricuspid Valve Valve structure is normal. No restricted motion. Trace regurgitation. No stenosis. Aortic Valve Valve structure is trileaflet. No restricted motion. No regurgitation. No stenosis. Pulmonic Valve Valve structure is normal. No restricted motion. No regurgitation. No stenosis. Ascending Aorta Normal sized sinus of Valsalva (aortic root) and ascending aorta. Pericardium No pericardial effusion. Study Details A complete 2D, color Doppler, spectral Doppler and M-mode echocardiogram was performed. The apical, parasternal, subcostal and suprasternal views were obtained. Saline ultrasound enhancing agent used. Procedure Note Brenna Pérez MD - 04/12/2024 Left Ventricle: Left ventricle size is normal. Normal wall thickness.Normal systolic function with a visually estimated EF of 60 - 65%. Normalwall motion. Grade I diastolic dysfunction with normal left atrialpressure. Everette Gomez MD ECHO CUPID * IR CAROTID CEREBRAL ANGIOGRAM (04/12/2024 2:30 PM CDT) Narrative [facility] - 04/14/2024 11:32 AM CDT See Notes. Everette Gomez MD IR ORDERABLES Performing Organization Address City/[facility] Co de Phone Number [facility] [id number] [place] [id number] * GLUCOSE - POINT OF CARE (04/12/2024 12:16 PM CDT) Only the most recent of3 resultswithin the time period is included. Glucose WB/POC 105 70 - 106 mg/dL 04/12/2024 6:41 PM CDT [facility] Specimen Type Cap Fingerstick 2023 6:41 PM CDT [facility] Blood BLOOD SPECIMEN / Unknown 04/12/2024 12:16 PM CDT 04/12/2024 6:41 PM CDT Everette Gmoez MD LAB - POINT OF CARE ORDERABLES Performing Organization Address City/[facility] Co de Phone Number [facility] [id number] [place] [id number] * (ABNORMAL) BASIC METABOLIC PANEL (CALCIUM TOTAL) (04/12/2024 1:31 AM CDT) Glucose 122(H) 70 - 105 mg/dL 04/12/2024 2:37 AM CDT [facility] Sodium 141 136 - 145 mmol/L 04/12/2024 2:37 AM CDT [facility] Potassium 3.6 3.5 - 5.1 mmol/L 04/12/2024 2:37 AM CDT [facility] Chloride 109(H) 98 - 107 mmol/L 04/12/2024 2:37 AM CDT [facility] CO2 24 22 - 29 mmol/L 04/12/2024 2:37 AM CDT [facility] Calcium 9.1 8.4 - 10.4 mg/dL 04/12/2024 2:37 AM CDT [facility] Anion Gap 8 6 - 16 mmol/L 04/12/2024 2:37 AM CDT [facility] BUN 17 7 - 26 mg/dL 04/12/2024 2:37 AM CDT [facility] Creatinine 0.81 0.57 - 1.11 mg/dL 04/12/2024 2:37 AM CDT [facility] eGFR by CKD-EPI 80(L) >=90 mL/min/1.7 3 m2 04/12/2024 2:37 AM CDT [facility] Blood BLOOD SPECIMEN / Unknown Venipuncture / Unknown 04/12/2024 1:31 AM CDT 04/12/2024 2:18 AM CDT Everette Gomez MD LAB - CHEMISTRY ANDREW ROBERSON [facility] Organization Address City/State/ZIP Co de Phone Number [facility] [address] [place] [address] * (ABNORMAL) LIPID PROFILE (04/12/2024 1:31 AM CDT) Cholesterol 176 <200 mg/dL 04/12/2024 2:37 AM CDT [facility] Triglycerides 356(H) <150 mg/dL 04/12/2024 2:37 AM CDT [facility] HDL Cholesterol 41 >40 mg/dL 4 2:37 AM CDT [facility] LDL Calculated 64 <130 mg/dL 04/12/2024 2:37 AM CDT [facility] VLDL Calculated 71(H) <=30 mg/dL 4 2:37 AM CDT [facility] Chol HDL Ratio 4.3 <4.5 04/12/2024 2:37 AM CDT [facility] LDL/HDL Ratio 1.6 <5.0 04/12/2024 2:37 AM CDT [facility] Blood BLOOD SPECIMEN / Unknown Venipuncture / Unknown 04/12/2024 1:31 AM CDT 04/12/2024 2:18 AM CDT Everette Gomez MD LAB - CHEMISTRY ANDREW ROBERSON Performing Organization Address [facility] Co de Phone Number [facility] [address] [place] [address] * TROPONIN-I HIGH SENSITIVE BASELINE + 1HR (04/11/2024 9:16 PM CDT) Only the most recent of2 resultswithin the time period is included. [facility] Troponin I High Sensitive <3 <=14 ng/L 04/11/2024 10:44 PM CDT [facility] Blood BLOOD SPECIMEN / Unknown Venipuncture / Unknown 04/11/2024 9:16 PM CDT 04/11/2024 10:18 PM CDT Everette Gomez MD LAB - CHEMISTRY ANDREW ROBERSON Performing Organization Address [facility] de Phone Number [facility] [address] [place] [phone] * TROPONIN-I HIGH SENSITIVE REFLEX 1HOUR (04/11/2024 8:20 PM CDT) [facility] Troponin I High Sensitive <3 <=14 ng/L 04/11/2024 9:13 PM CDT [facility] Delta Troponin I HS 04/11/2024 9:13 PM CDT [facility] Comment:Delta value intentio leonor not calculated. Baseline to 1 hour specimen collection interval exceeded. Blood BLOOD SPECIMEN / Unknown Venipuncture / Unknown 04/11/2024 8:20 PM CDT 04/11/2024 8:47 PM CDT Philomena Bueno PA-C LAB - CHEMISTRY HARPAL KISER Performing Organization Address [facility] Co de Phone Number [facility] [address] [place], [place] [id number] * CARBAMAZEPINE LEVEL TOTAL+ FREE PANEL (04/11/2024 8:20 PM CDT) Carbamazepine 5.9 4.0 - 12.0 ug/mL 04/14/2024 4:12 PM CDT [facility] ([facility]) Comment: In conjunction with other antiepileptic drugs Therapeutic 4.0 - 8.0 Toxicity 9.0 - 12.0 Carbamazepine alone Therapeutic 8.0 - 12.0 Detection Limit = 0.5 <0.5 indicated None Detected Carbamazepine Free 1.3 0.6 - 4.2 ug/mL 04/14/2024 4:12 PM CDT [facility] ([facility]) Comment:Detection Limit = 0. 5 Blood BLOOD SPECIMEN / Unknown Venipuncture / Unknown 04/11/2024 8:20 PM CDT 04/11/2024 8:47 PM CDT Narrative [facility] ([facility]) - 04/14/2024 4:12 PM CDT Performed at: [address] [place] [phone] [employer]: Lizzy Padron MD, Phone: [phone] Everette Gomez MD LAB - CHEMISTRY ANDREW ROBERSON [facility] Organization Address City/State/ZIP Co de Phone Number [facility] ([facility]) [address] [place] [address] * MRI BRAIN WO CONTRAST (04/11/2024 5:14 PM CDT) Anatomical Region Laterality Modality Head Magnetic Resonan ce 04/11/2024 5:16 PM CDT Impressions 04/11/2024 5:18 PM CDT IMPRESSION: No evidence of acute ischemia Small vessel and senescent changes Right mastoiditis > Interpreting Provider: Tramaine Harvey MD on 04/11/2024 5:18 PM Narrative 04/11/2024 5:18 PM CDT PROCEDURE: MRI BRAIN WO CONTRAST DATE/TIME OF EXAM: 04/11/2024 5:14 PM CLINICAL INFORMATION: None relevant/not provided if blank. Indication: R42: Dizziness and giddiness Additional History: COMPARISON: February 07, 2024 TECHNIQUE: MRI of the brain was performed without contrast. FINDINGS: No abnormal areas of increased signal to suggest cytotoxic edema, hyperacute or acute ischemic changes are present. The ventricles, gyri and sulci are age-appropriate. Periventricular T2 and FLAIR signal extending into the deep white matter is redemonstrated and most consistent with small vessel and senescent changes. No midline shift or acute intracranial hemorrhage. There is ethmoid sinus thickening. There is fluid in the right mastoid air cells. Procedure Note Tramaine Harvey MD - 04/11/2024 PROCEDURE: MRI BRAIN WO CONTRAST DATE/TIME OF EXAM: 04/11/2024 5:14 PM CLINICAL INFORMATION: None relevant/not provided if blank. Indication: R42: Dizziness and giddiness Additional History: COMPARISON: February 07, 2024 TECHNIQUE: MRI of the brain was performed without contrast. FINDINGS: No abnormal areas of increased signal to suggest cytotoxic edema, hyperacute or acute ischemic changes are present. The ventricles, gyri and sulci are age-appropriate. Periventricular T2and FLAIR signal extending into the deep white matter is redemonstrated and most consistent with small vessel and senescent changes. No midlineshift or acute intracranial hemorrhage. There is ethmoid sinus thickening. There is fluid in the right mastoidair cells. IMPRESSION: No evidence of acute ischemia Small vessel and senescent changes Right mastoiditis > Interpreting Provider: Tramaine Harvey MD on 04/11/2024 5:18 PM Wiley Pfeiffer MD MR ORDERABLES * CT ANGIO BRAIN NECK STROKE (04/11/2024 2:13 PM CDT) Anatomical Region Laterality Modality Head Computed Tomogra phy 04/11/2024 2:46 PM CDT Impressions 04/11/2024 3:00 PM CDT IMPRESSION: 1. Mild atherosclerosis of the extracranial carotid arteries but no stenosis or occlusion is identified. 2. Dominant right and mildly hypoplastic left vertebral artery which arises directly from the aortic arch. 3. Intracranially there is no flow-limiting stenosis or large vessel occlusion. 4. 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 > Interpreting Provider: Wan Navarrete DO on 04/11/2024 3:00 PM Narrative 04/11/2024 3:00 PM CDT PROCEDURE: CT ANGIO BRAIN NECK STROKE DATE/TIME OF EXAM: 04/11/2024 2:[address] angiography neck with contrast CT angiography head with contrast CT 3D Reconstruction Clinical Indication: R42: Dizziness and giddiness Technique: Axial CT images from the transverse aortic arch through the cranial vertex were obtained following the administration of 80mL Isovue 370 intravenous contrast. Multiplanar reformatted, maximum intensity projection, and 3D volume rendered reconstructions of the arterial vasculature of the neck and brain was performed on an independent workstation. Viz AI used for large vessel occlusion detection COMPARISON: Head CT 04/11/2024. MRA brain 02/07/2024. Findings: CTA Neck: Mild atherosclerosis of the aortic arch. There is no subclavian artery stenosis or occlusion. Right common carotid artery is patent. There is moderate calcified plaque at the right carotid bulb and proximal ICA. This does not contribute to any flow-limiting stenosis however. The right cervical ICA is tortuous and looped within its mid segment but without stenosis or occlusion. Similarly there is moderate calcified plaque at the left carotid bulb and proximal ICA but this does not result in any flow limiting stenosis or occlusion. Tortuous, looped mid cervical ICA segment with stenosis or occlusion. The left vertebral artery is slightly smaller in caliber and arises directly from the aortic arch which is an anatomic variant. No right vertebral artery ostial stenosis. The V1, V2 and V3 segments are all patent. Groundglass opacities are observed throughout both lung apices. No thyroid enlargement. Cervical alignment and curvature is normal. CTA Brain: Patent intradural vertebral arteries. Proximal basilar artery is slightly ectatic but not aneurysmally dilated. There is no basilar stenosis. The superior cerebellar and posterior cerebral arteries are also patent. No basilar terminus aneurysm. Petrous, cavernous and supraclinoid ICA segments are patent. Patent anterior and middle cerebral artery bifurcations. There is no flow-limiting stenosis or large vessel intracranial occlusion. Small anterior communicating artery with possible tiny aneurysm directed cephalad measuring no greater than 2 mm (series 402 image 258, coronal MIP image 24). No abnormal contrast enhancement. Dural venous sinuses enhance normally. Procedure Note Wan Navarrete DO - 04/11/2024 PROCEDURE: CT ANGIO BRAIN NECK STROKE DATE/TIME OF EXAM: 04/11/2024 2:[address] angiography neck with contrast CT angiography head with contrast CT 3D Reconstruction Clinical Indication: R42: Dizziness and giddiness Technique: Axial CT images from the transverse aortic arch through the cranial vertex were obtained following the administration of 80mL Isovue 370 intravenous contrast. Multiplanar reformatted, maximum intensity projection, and 3D volume rendered reconstructions of the arterial vasculature of the neck and brain was performed on an independent workstation. Viz AI used for large vessel occlusion detection COMPARISON: Head CT 04/11/2024. MRA brain 02/07/2024. Findings: CTA Neck: Mild atherosclerosis of the aortic arch. There is no subclavian artery stenosis or occlusion. Right common carotid artery is patent. There is moderate calcifiedplaque at the right carotid bulb and proximal ICA. This does not contribute toany flow-limiting stenosis however. The right cervical ICA is tortuous and looped within its mid segment but without stenosis or occlusion. Similarly there is moderate calcified plaque at the left carotid bulband proximal ICA but this does not result in any flow limiting stenosis or occlusion. Tortuous, looped mid cervical ICA segment with stenosis or occlusion. The left vertebral artery is slightly smaller in caliber and arises directly from the aortic arch which is an anatomic variant. No right vertebral artery ostial stenosis. The V1, V2 and V3 segments are all patent. Groundglass opacities are observed throughout both lung apices. Nothyroid enlargement. Cervical alignment and curvature is normal. CTA Brain: Patent intradural vertebral arteries. Proximal basilar artery isslightly ectatic but not aneurysmally dilated. There is no basilar stenosis. The superior cerebellar and posterior cerebral arteries are also patent. No basilar terminus aneurysm. Petrous, cavernous and supraclinoid ICA segments are patent. Patent anterior and middle cerebral artery bifurcations. There is noflow-limiting stenosis or large vessel intracranial occlusion. Small anterior communicating artery with possible tiny aneurysm directed cephalad measuring no greater than 2 mm (series 402 image 258, coronal MIP image 24). No abnormal contrast enhancement. Dural venous sinuses enhance normally. IMPRESSION: 1. Mild atherosclerosis of the extracranial carotid arteries but no stenosis or occlusion is identified. 2. Dominant right and mildly hypoplastic left vertebral artery whicharises directly from the aortic arch. 3. Intracranially there is no flow-limiting stenosis or large vessel occlusion. 4. 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 > Interpreting Provider: Wan Navarrete DO on 04/11/2024 3:00 PM Wiley Pfeiffer MD CT ORDERABLES * TYPE + SCREEN PANEL (04/11/2024 2:07 PM CDT) ABO Rh A NEG 04/11/2024 2:56 PM CDT [facility] Comment:No history; collect retype. Antibody Screen NEG 2:56 PM CDT [facility] Blood Bank BLOOD SPECIMEN / Unknown Venipuncture / Unknown 04/11/2024 2:07 PM CDT 04/11/2024 2:11 PM CDT Philomena Bueno PA-C LAB - BLOOD BANK OR DERABLES Performing Organization Address [facility] Co de Phone Number [facility] [address] [place] [phone] [phone] * PTT (04/11/2024 2:07 PM CDT) PTT 23.2 23.0 - 38.4 sec 04/11/2024 2:31 PM CDT [facility] Blood BLOOD SPECIMEN / Unknown Venipuncture / Unknown 04/11/2024 2:07 PM CDT 04/11/2024 2:11 PM CDT Narrative [facility] - 04/11/2024 2:31 PM CDT Heparin Therapeutic Range for PTT: 69.0 - 110.0 seconds. Philomena Bueno PA-C LAB - COAGULATION O RDERABLES Performing Organization Address City/[facility]/ZIP Co de Phone Number [facility] [address] [place] [address] * PT-INR (04/11/2024 2:07 PM CDT) PT 12.1 12.1 - 14.8 sec 04/11/2024 2:31 PM CDT [facility] INR 0.9 0.9 - 1.1 04/11/2024 2:31 PM CDT [facility] Blood BLOOD SPECIMEN / Unknown Venipuncture / Unknown 04/11/2024 2:07 PM CDT 04/11/2024 2:11 PM CDT Narrative [facility] - 04/11/2024 2:31 PM CDT Conventional Warfarin Anticoagulant Therapy: INR Reference Range: 2.0-3.0 Intensive Warfarin Anticoagulant Therapy: INR Reference Range: 2.5-3.5 Philomena Bueno PA-C LAB - COAGULATION O RDERABLES Performing Organization Address City/State/[facility] Co de Phone Number [facility] [address] [place] [address] * CBC W AUTO DIFFERENTIAL (04/11/2024 2:07 PM CDT) WBC 5.9 4.0 - 10.7 x10E9/L 04/11/2024 2:20 PM CDT [facility] RBC Count 4.77 3.90 - 5.20 x10E12/L 04/11/2024 2:20 PM CDT [facility] Hemoglobin 14.4 11.9 - 15.8 g/dL 04/11/2024 2:20 PM CDT [facility] Hematocrit 43.4 34.8 - 46.1 % 04/11/2024 2:20 PM CDT [facility] MCV 91.0 80.0 - 98.0 fL 04/11/2024 2:20 PM CDT [facility] MCH 30.2 26.7 - 33.6 pg 04/11/2024 2:20 PM CDT [facility] MCHC 33.2 31.7 - 36.3 g/dL 04/11/2024 2:20 PM CDT [facility] RDW-CV 12.8 11.3 - 14.8 % 04/11/2024 2:20 PM CDT [facility] Platelet Count 261 150 - 420 x10E9/L 04/11/2024 2:20 PM CDT [facility] MPV 9.0 7.8 - 11.4 fL 04/11/2024 2:20 PM CDT [facility] Neutrophil % 46.2 41.0 - 74.0 % 04/11/2024 2:20 PM CDT [facility] Lymphocyte % 38.4 17.0 - 47.0 % 04/11/2024 2:20 PM CDT [facility] Monocyte % 9.8 3.0 - 11.0 % 04/11/2024 2:20 PM CDT [facility] Eosinophil % 4.6 0.0 - 7.0 % 04/11/2024 2:20 PM CDT [facility] Basophil % 0.7 0.0 - 1.6 % 04/11/2024 2:20 PM CDT [facility] Immature Granulocytes % 0.3 0.0 - 1.0 % 04/11/2024 2:20 PM CDT [facility] Neutrophil Absolute 2.72 1.60 - 7.50 x10E9/L 04/11/2024 2:20 PM CDT [facility] Lymphocyte Absolute 2.26 1.00 - 4.40 x10E9/L 04/11/2024 2:20 PM CDT [facility] Monocyte Absolute 0.58 0.15 - 1.00 x10E9/L 04/11/2024 2:20 PM CDT [facility] Eosinophil Absolute 0.27 0.00 - 0.60 x10E9/L 04/11/2024 2:20 PM CDT [facility] Basophil Absolute 0.04 0.00 - 0.13 x10E9/L 04/11/2024 2:20 PM CDT [facility] Blood BLOOD SPECIMEN / Unknown Venipuncture / Unknown 04/11/2024 2:07 PM CDT 04/11/2024 2:11 PM CDT Philomena Bueno PA-C LAB - HEMATOLOGY OR DERABLES [facility] [address] [place] [address] * B-TYPE NATRIURETIC PEPTIDE (04/11/2024 2:07 PM CDT) BNP 29 <=100 pg/mL 04/11/2024 3:10 PM CDT [facility] Blood BLOOD SPECIMEN / Unknown Venipuncture / Unknown 04/11/2024 2:07 PM CDT 04/11/2024 2:11 PM CDT Wiley Pfeiffer MD LAB - CHEMISTRY ANDREW ROBERSON [facility] [address] [place] [address] * (ABNORMAL) COMPREHENSIVE METABOLIC PANEL (04/11/2024 2:07 PM CDT) [facility] Glucose 93 70 - 105 mg/dL 04/11/2024 2:37 PM CDT [facility] Sodium 141 136 - 145 mmol/L 04/11/2024 2:37 PM CDT [facility] Potassium 4.4 3.5 - 5.1 mmol/L 04/11/2024 2:37 PM CDT [facility] Chloride 109(H) 98 - 107 mmol/L 04/11/2024 2:37 PM CDT [facility] CO2 19(L) 22 - 29 mmol/L 04/11/2024 2:37 PM CDT [facility] Calcium 10.7(H) 8.4 - 10.4 mg/dL 04/11/2024 2:37 PM CDT [facility] Anion Gap 13 6 - 16 mmol/L 04/11/2024 2:37 PM CDT [facility] BUN 14 7 - 26 mg/dL 04/11/2024 2:37 PM CDT [facility] Creatinine 0.79 0.57 - 1.11 mg/dL 04/11/2024 2:37 PM CDT [facility] Alkaline Phosphatase 126 40 - 150 U/L 04/11/2024 2:37 PM CDT [facility] ALT 29 0 - 55 U/L 04/11/2024 2:37 PM CDT [facility] AST 29 5 - 34 U/L 04/11/2024 2:37 PM CDT [facility] Protein Total 7.8 6.4 - 8.3 gm/dL 04/11/2024 2:37 PM CDT [facility] Albumin 3.8 3.4 - 5.0 gm/dL 04/11/2024 2:37 PM CDT [facility] Bilirubin Total 0.3 0.2 - 1.2 mg/dL 04/11/2024 2:37 PM CDT [facility] eGFR by CKD-EPI 82(L) >=90 mL/min/1.7 3 m2 04/11/2024 2:37 PM CDT [facility] Blood BLOOD SPECIMEN / Unknown Venipuncture / Unknown 04/11/2024 2:07 PM CDT 04/11/2024 2:11 PM CDT Philomena Bueno PA-C LAB - CHEMISTRY ORD ERABLES Performing Organization Address [facility] Co de Phone Number [facility] [address] [place] [address] [phone] * INR WHOLE BLOOD - POINT OF CARE (IP) STROKE (04/11/2024 1:48 PM CDT) Pathologist [facility] INR 0.9 0.9 - 1.2 04/11/2024 1:59 PM CDT [facility] Blood BLOOD SPECIMEN / Unknown 04/11/2024 1:48 PM CDT 04/11/2024 1:59 PM CDT Wiley Pfeiffer MD LAB - POINT OF CARE ORDERABLES Performing Organization Address [facility] de Phone Number [facility] [address] [place] [phone] * (ABNORMAL) CREATININE - POCT INTERFACED (04/11/2024 1:48 PM CDT) Only the most recent of2 resultswithin the time period is included. [facility] Creatinine POCT 0.77 0.70 - 1.20 mg/dL 04/11/2024 2:01 PM CDT [facility] eGFR 84(L) >=90 mL/min/1.7 3 m2 04/11/2024 2:01 PM CDT [facility] Blood BLOOD SPECIMEN / Unknown 04/11/2024 1:48 PM CDT 04/11/2024 2:01 PM CDT Wiley Pfeiffer MD LAB - POINT OF CARE ORDERABLES Performing Organization Address [facility] de Phone Number [facility] [address] [place] [address] [phone] * EKG 12-LEAD (04/11/2024 1:46 PM CDT) Ventricular Rate 74 BPM [facility] Atrial Rate 74 BPM [facility] P-R Interval 182 ms [facility] QRS Duration ms 78 ms [facility] Q-T Interval ms 392 ms [facility] QTC Calculation (Bezet) 435 ms [facility] Calculated P Superior 0 degrees [facility] Calculated R Superior 9 degrees [facility] Calculated T Superior 23 degrees [facility] Interpretation EKG Normal sinus rhythm Normal ECG No previous ECGs available Confirmed by DASHA KRAFT MD ([id number]) on 04/11/2024 6:39:06 PM [facility] 04/11/2024 1:46 PM CDT 04/11/2024 6:39 PM CDT Philomena Bueno PA-C ECG ORDERABLES [facility] * CT BRAIN - Stroke (04/11/2024 1:37 PM CDT) Anatomical Region Laterality Modality Head Computed Tomogra phy 04/11/2024 1:49 PM CDT Impressions 04/11/2024 1:50 PM CDT IMPRESSION: No intracranial hemorrhage or other acute abnormality by CT. > Interpreting Provider: Priscilla Tapia MD on 04/11/2024 1:50 PM Narrative 04/11/2024 1:50 PM CDT PROCEDURE: CT BRAIN STROKE DATE/TIME OF EXAM: 04/11/2024 1:37 PM CLINICAL INFORMATION: None relevant/not provided if blank. Indication: R42: Dizziness and giddiness Additional History: COMPARISON: None. TECHNIQUE: Noncontrast CT brain was performed utilizing standard protocol. CT dose reduction technique was used, including Automated Exposure Control. FINDINGS: Diffuse volume loss is consistent with patient's age. No intracranial hemorrhage or mass is seen. There is no abnormal extra-axial fluid collection. There is no evidence of an acute cortical infarction. Paranasal sinuses and mastoid air cells are clear. Procedure Note Priscilla Tapia MD - 04/11/2024 PROCEDURE: CT BRAIN STROKE DATE/TIME OF EXAM: 04/11/2024 1:37 PM CLINICAL INFORMATION: None relevant/not provided if blank. Indication: R42: Dizziness and giddiness Additional History: COMPARISON: None. TECHNIQUE: Noncontrast CT brain was performed utilizing standard protocol. CT dose reduction technique was used, including Automated ExposureControl. FINDINGS: Diffuse volume loss is consistent with patient's age. No intracranial hemorrhage or mass is seen. There is no abnormal extra-axial fluid collection. There is no evidence of an acute cortical infarction.Paranasal sinuses and mastoid air cells are clear. IMPRESSION: No intracranial hemorrhage or other acute abnormality by CT. > Interpreting Provider: Priscilla Tapia MD on 04/11/2024 1:50 PM Philomena Bueno PA-C CT ORDERABLES * MRI IAC AND BRAIN WWO CONT (02/07/2024 3:54 PM CDT) Anatomical Region Laterality Modality Head Magnetic Resonan ce 02/07/2024 5:01 PM CDT Impressions 02/08/2024 3:09 PM CDT IMPRESSION: 1. Bilateral periventricular white matter hyperintensity, likely related to chronic small vessel ischemic disease. No acute infarct. No focal enhancing parenchymal lesion seen. No evidence for abnormal enhancement within the CP angle, the 7th and 8th nerve complex or the trigeminal nerves. 2. No large vessel occlusion around the teller of Clemens. Tortuous course of the vertebral arteries and the basilar artery. Edited by Swapna Cheng on 02/08/2024 2:58 PM > Interpreting Provider: Yanira Glass MD on 02/08/2024 3:09 PM Narrative 02/08/2024 3:09 PM CDT PROCEDURE: MRI IAC AND BRAIN WWO CONT, MRI ANGIO BRAIN ARTERIAL WO CONT DATE/TIME OF EXAM: 02/07/2024 3:55 PM CLINICAL INFORMATION: None relevant/not provided if blank. Indication: G50.0: Trigeminal neuralgia Additional History: COMPARISON: None. TECHNIQUE: MRI of the brain with IAC was performed utilizing multiple pulse sequences in multiple planes with and without gadolinium. MR angiography of the brain is performed without intravenous contrast. CONTRAST: GADOTERATE MEGLUMINE 0.5 MMOL/ML IV SSM SO:18 mL FINDINGS: MRI Brain and IAC: There is bilateral periventricular white matter hyperintensity. Prominent ventricles and cerebral sulci, consistent with cerebral atrophy. The cerebellopontine pontine angles are clear. The internal auditory canals are symmetric. The 7th and 8th nerve complexes are unremarkable. Tortuous course of the vertebral arteries. Patulous basilar artery noted. No focal enhancing CP angle lesion identified. No evidence for abnormal enhancing lesion involving the 7th and 8th nerve complex seen. No evidence of abnormal enhancement or focal lesion involving the trigeminal nerves. Meckel's caves are clear. No diffusion restriction to suggest acute infarct is seen. No evidence of hemorrhage is seen on gradient sequence. Vascular flow-voids are maintained. Clear paranasal sinuses. Right mastoid effusion. MRA Brain: The distal internal carotid arteries are patent without focal narrowing or occlusion. The anterior and middle cerebral arteries are patent without focal narrowing. The vertebral arteries are codominant. The vertebral and basilar arteries are patent without focal narrowing or occlusion. The posterior cerebral arteries are patent without focal narrowing. No aneurysm or arteriovenous malformation is identified. Procedure Note Yanira Glass MD - 02/08/2024 PROCEDURE: MRI IAC AND BRAIN WWO CONT, MRI ANGIO BRAIN ARTERIAL WO CONT DATE/TIME OF EXAM: 02/07/2024 3:55 PM CLINICAL INFORMATION: None relevant/not provided if blank. Indication: G50.0: Trigeminal neuralgia Additional History: COMPARISON: None. TECHNIQUE: MRI of the brain with IAC was performed utilizing multiple pulsesequences in multiple planes with and without gadolinium. MR angiography of thebrain is performed without intravenous contrast. CONTRAST: GADOTERATE MEGLUMINE 0.5 MMOL/ML IV SSM SO:18 mL FINDINGS: MRI Brain and IAC: There is bilateral periventricular white matter hyperintensity. Prominent ventricles and cerebral sulci, consistent with cerebral atrophy. The cerebellopontine pontine angles are clear. The internal auditory canals are symmetric. The 7th and 8th nerve complexesare unremarkable. Tortuous course of the vertebral arteries. Patulousbasilar artery noted. No focal enhancing CP angle lesion identified. No evidence for abnormal enhancing lesion involving the 7th and 8th nerve complexseen. No evidence of abnormal enhancement or focal lesion involving the trigeminal nerves. Meckel's caves are clear. No diffusion restriction to suggest acute infarct is seen. No evidence of hemorrhage is seen on gradient sequence. Vascular flow-voids are maintained. Clear paranasal sinuses. Right mastoid effusion. MRA Brain: The distal internal carotid arteries are patent without focal narrowingor occlusion. The anterior and middle cerebral arteries are patent without focal narrowing. The vertebral arteries are codominant. The vertebral and basilararteries are patent without focal narrowing or occlusion. The posterior cerebral arteries are patent without focal narrowing. No aneurysm or arteriovenous malformation is identified. IMPRESSION: 1. Bilateral periventricular white matter hyperintensity, likely relatedto chronic small vessel ischemic disease. No acute infarct. No focalenhancing parenchymal lesion seen. No evidence for abnormal enhancement within theCP angle, the 7th and 8th nerve complex or the trigeminal nerves. 2. No large vessel occlusion around the teller of Clemens. Tortuouscourse of the vertebral arteries and the basilar artery. Edited by Swapna Cheng on 02/08/2024 2:58 PM > Interpreting Provider: Yanira Glass MD on 02/08/2024 3:09 PM Bonita Bowman MD MR ORDERABLES * MRI ANGIO BRAIN ARTERIAL WO CONT (02/07/2024 3:31 PM CDT) Anatomical Region Laterality Modality Head Magnetic Resonan ce 02/07/2024 5:01 PM CDT Impressions 02/08/2024 3:09 PM CDT IMPRESSION: 1. Bilateral periventricular white matter hyperintensity, likely related to chronic small vessel ischemic disease. No acute infarct. No focal enhancing parenchymal lesion seen. No evidence for abnormal enhancement within the CP angle, the 7th and 8th nerve complex or the trigeminal nerves. 2. No large vessel occlusion around the teller of Clemens. Tortuous course of the vertebral arteries and the basilar artery. Edited by Swapna Cheng on 02/08/2024 2:58 PM > Interpreting Provider: Yanira Glass MD on 02/08/2024 3:09 PM Narrative 02/08/2024 3:09 PM CDT PROCEDURE: MRI IAC AND BRAIN WWO CONT, MRI ANGIO BRAIN ARTERIAL WO CONT DATE/TIME OF EXAM: 02/07/2024 3:55 PM CLINICAL INFORMATION: None relevant/not provided if blank. Indication: G50.0: Trigeminal neuralgia Additional History: COMPARISON: None. TECHNIQUE: MRI of the brain with IAC was performed utilizing multiple pulse sequences in multiple planes with and without gadolinium. MR angiography of the brain is performed without intravenous contrast. CONTRAST: GADOTERATE MEGLUMINE 0.5 MMOL/ML IV SSM SO:18 mL FINDINGS: MRI Brain and IAC: There is bilateral periventricular white matter hyperintensity. Prominent ventricles and cerebral sulci, consistent with cerebral atrophy. The cerebellopontine pontine angles are clear. The internal auditory canals are symmetric. The 7th and 8th nerve complexes are unremarkable. Tortuous course of the vertebral arteries. Patulous basilar artery noted. No focal enhancing CP angle lesion identified. No evidence for abnormal enhancing lesion involving the 7th and 8th nerve complex seen. No evidence of abnormal enhancement or focal lesion involving the trigeminal nerves. Meckel's caves are clear. No diffusion restriction to suggest acute infarct is seen. No evidence of hemorrhage is seen on gradient sequence. Vascular flow-voids are maintained. Clear paranasal sinuses. Right mastoid effusion. MRA Brain: The distal internal carotid arteries are patent without focal narrowing or occlusion. The anterior and middle cerebral arteries are patent without focal narrowing. The vertebral arteries are codominant. The vertebral and basilar arteries are patent without focal narrowing or occlusion. The posterior cerebral arteries are patent without focal narrowing. No aneurysm or arteriovenous malformation is identified. Procedure Note Yanira Glass MD - 02/08/2024 PROCEDURE: MRI IAC AND BRAIN WWO CONT, MRI ANGIO BRAIN ARTERIAL WO CONT DATE/TIME OF EXAM: 02/07/2024 3:55 PM CLINICAL INFORMATION: None relevant/not provided if blank. Indication: G50.0: Trigeminal neuralgia Additional History: COMPARISON: None. TECHNIQUE: MRI of the brain with IAC was performed utilizing multiple pulsesequences in multiple planes with and without gadolinium. MR angiography of thebrain is performed without intravenous contrast. CONTRAST: GADOTERATE MEGLUMINE 0.5 MMOL/ML IV SSM SO:18 mL FINDINGS: MRI Brain and IAC: There is bilateral periventricular white matter hyperintensity. Prominent ventricles and cerebral sulci, consistent with cerebral atrophy. The cerebellopontine pontine angles are clear. The internal auditory canals are symmetric. The 7th and 8th nerve complexesare unremarkable. Tortuous course of the vertebral arteries. Patulousbasilar artery noted. No focal enhancing CP angle lesion identified. No evidence for abnormal enhancing lesion involving the 7th and 8th nerve complexseen. No evidence of abnormal enhancement or focal lesion involving the trigeminal nerves. Meckel's caves are clear. No diffusion restriction to suggest acute infarct is seen. No evidence of hemorrhage is seen on gradient sequence. Vascular flow-voids are maintained. Clear paranasal sinuses. Right mastoid effusion. MRA Brain: The distal internal carotid arteries are patent without focal narrowingor occlusion. The anterior and middle cerebral arteries are patent without focal narrowing. The vertebral arteries are codominant. The vertebral and basilararteries are patent without focal narrowing or occlusion. The posterior cerebral arteries are patent without focal narrowing. No aneurysm or arteriovenous malformation is identified. IMPRESSION: 1. Bilateral periventricular white matter hyperintensity, likely relatedto chronic small vessel ischemic disease. No acute infarct. No focalenhancing parenchymal lesion seen. No evidence for abnormal enhancement within theCP angle, the 7th and 8th nerve complex or the trigeminal nerves. 2. No large vessel occlusion around the teller of Clemens. Tortuouscourse of the vertebral arteries and the basilar artery. Edited by Swapna Cheng on 02/08/2024 2:58 PM > Interpreting Provider: Yanira Glass MD on 02/08/2024 3:09 PM Bonita Bowman MD MR ORDERABLES Care Teams Kiln Burner Relationship Specialty Start Date End Date Judith Leon MD [address] [place] [id number] PCP - General Family Medicine 04/12/24
--- OUTSIDE RECORDS SUMMARY | 2025-02-03 07:48 | XMS_ITS | Clinical Summary ---
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 4 Active albuterol sulfate HFA 90 mcg/actuation aerosol inhaler INHALE 2 PUFFS BY MOUTH FOUR TIMES DAILY NEEDED FOR SHORTNESS OF BREATH OR WHEEZING Active alirocumab (Praluent Pen) 75 mg/mL Pen Injector INJECT 75 MG UNDER SKIN EVERY 2 WEEKS X 90 DAYS Active ALPRAZolam (XANAX) 0.25 mg tablet Take 0.25 mg by mouth every 12 hours. 4 Active amLODIPine (NORVASC) 10 mg tablet Take 10 mg by mouth daily. 4 Active aspirin (ECOTRIN EC) 81 mg Tablet, Delayed Release (E.C.) Take 81 mg by mouth. 4 Active baclofen (LIORESAL) 10 mg tablet Take 10 mg by mouth every 8 hours. 4 Active carBAMazepine (TEGretol XR) 200 mg Extended Release 12 hour tablet Take 400 mg by mouth. 4 Active diphenhydrAMINE (BENADRYL) 25 mg tablet Take by mouth six times daily. 4 Active ergocalciferol (VITAMIN D2) 50,000 unit capsule Take 50,000 Units by mouth. Active escitalopram oxalate (LEXAPRO) 10 mg tablet 10 mg. 4 Active ezetimibe (ZETIA) 10 mg tablet Take 10 mg by mouth daily. 4 Active famotidine (PEPCID) 40 mg tablet Take 40 mg by mouth daily. 4 Active fluticasone propionate (FLONASE) 50 mcg/spray Trezevant, Suspension nasal inhaler 1 Trezevant 2 times daily. Active gabapentin (NEURONTIN) 100 mg capsule 1CAP ON DAY 1, THEN TAKE 2CAPS ON DAY 2, THEN TAKE 3CAPS ON DAY 3 AND EVERY DAY AFTER DIRECTED 3 Active HYDROcodone-acet aminophen 2.5-325 mg Tablet 4 Active hydrOXYzine HCL (ATARAX) 10 mg tablet Take 10 mg by mouth 3 times daily as needed. 4 Active ibandronate (BONIVA) 150 mg tablet Take 150 mg by mouth every 30 days. Active ibuprofen (MOTRIN) 200 mg tablet Take by mouth. 4 Active isosorbide mononitrate (IMDUR) 30 mg Extended Release 24 hour tablet Take 30 mg by mouth daily. 3 05/12/20 25 Active lisinopriL (PRINIVIL) 20 mg tablet Take 20 mg by mouth daily. Active loratadine-pseud oephedrine (CLARITIN-D) 5-120 mg Extended Release 12 hour tablet Take 1 Tablet by mouth daily. Active losartan (COZAAR) 50 mg tablet Take 50 mg by mouth 2 times daily. 4 05/12/20 25 Active magnesium oxide (MAG-OX) 400 mg (241.3 mg magnesium) tablet Take 400 mg by mouth daily. 4 Active metFORMIN (GLUCOPHAGE XR) 500 mg Extended Release 24 hour tablet Take 500 mg by mouth daily with breakfast. 3 Active metoprolol succinate (TOPROL XL) 25 mg Extended Release 24 hour tablet Take 25 mg by mouth. 4 Active montelukast (SINGULAIR) 10 mg tablet Take 10 mg by mouth. Active omeprazole (PriLOSEC) 40 mg Capsule, Delayed Release(E.C.) Take 40 mg by mouth daily. Active ondansetron (ZOFRAN ODT) 4 mg Tablet, Rapid Dissolve Take 4 mg by mouth. 3 Active oxyCODONE-acetam inophen (PERCOCET) 7.5-325 mg Tablet Take 1 Tablet by mouth. 4 Active pantoprazole (PROTONIX) 40 mg Tablet, Delayed Release (E.C.) Take 40 mg by mouth daily. 4 Active PHENobarbitaL 100 mg tablet Take 100 mg by mouth daily at bedtime. 4 Active predniSONE (DELTASONE) 10 mg tablet Take 3 tabs days 1 & 2, 2 tabs days 3 & 4, 1 tab days 5-7. 4 Active pregabalin (LYRICA) 25 mg Capsule TAKE 1 CAPSULE BY MOUTH 3 TIMES A DAY. 4 Active rosuvastatin (CRESTOR) 5 mg tablet Take 5 mg by mouth daily. 4 Active SUMAtriptan (IMITREX) 100 mg tablet PLEASE SEE ATTACHED FOR DETAILED DIRECTIONS 4 Active cholecalciferol, Vitamin D3, 50 mcg (2,000 unit) Tablet Take 2,000 Units by mouth. 4 01/06/20 25 Active Problems No known active problems Encounters Date Type Department Care Team Description 01/30/2025 External Device Data [facility] ABSTRACTION Provider, Abstract 01/17/2025 External Device Data [facility] ABSTRACTION Provider, Abstract 01/16/2025 External Device Data [facility] ABSTRACTION Provider, Abstract 12/20/2024 External Device Data [facility]STRACTION Provider, Abstract 12/19/2024 External Device Data [facility] ABSTRACTION Provider, Abstract 12/12/2024 External Device Data [facility] ABSTRACTION Provider, Abstract 12/05/2024 External Device Data [facility] ABSTRACTION Provider, Abstract from Last 3 Months Family History Medical History Relation Name Comments No Known Problems Brother 1 No Known Problems Brother 2 No Known Problems Brother 3 No Known Problems Brother 4 No Known Problems Child 1 No Known Problems Child 2 No Known Problems Child 3 No Known Problems Child 4 No Known Problems Child 5 Heart Disease Father No Known Problems Mother Down's Syndrome Sister 1 No Known Problems Sister 2 No Known Problems Sister 3 No Known Problems Sister 4 No Known Problems Sister 5 No Known Problems Sister 6 Relation Name Status Comments Brother 1 Alive Brother 2 Alive Brother 3 Alive Brother 4 Alive Child 1 Alive Child 2 Alive Child 3 Alive Child 4 Alive Child 5 Alive Father Mother Alive Sister 1 Sister 2 Alive Sister 3 Alive Sister 4 Alive Sister 5 Alive Sister 6 Alive Social History Tobacco Use Types Packs/Day Years Used Date Smoking Tobacco: Never Smokeless Tobacco: Never Tobacco Cessation:Counseling Given: Not Answered Alcohol Use Standard Drinks/Week Comments Yes 0 (1 standard drink = 0.6 oz pur e alcohol) socially maybe 4 times a year Comments Unknown Sex and Gender Information Value Date Recorded Sex Assigned at Not on file Legal Sex Female 1:52 PM CDT Gender Identity Not on file Sexual Orientation Not on file Last Filed Vital Signs Vital Sign Reading Time Taken Comments Blood Pressure 135/90 08/15/2024 1:41 PM CDT Pulse 85 08/15/2024 1:41 PM CDT Temperature 36.7 C (98 F) 08/15/2024 1:41 PM CDT Respiratory Rate 15 08/15/2024 1:41 PM CDT Oxygen Saturation 96% 08/15/2024 1:41 PM CDT Inhaled Oxygen Concentration - - Weight 88.6 kg (195 lb 6.4 oz) 08/15/2024 1:41 P M CDT Height 162.6 cm (5' 4 ) 08/15/2024 1:41 PM CDT Body Mass Index 33.54 08/15/2024 1:41 PM CDT Plan of Treatment Health Maintenance Due Date Last Done Comments Pre-Diabetes and Diabetes Screening 1955 COLORECTAL SCREENING 2001 Colorectal Cancer Screening 2001 FIT-DNA Q 3 years 2001 FIT/FOBT Q 1 year 2001 Flex Sig/CT Colonography Q 5 years 2001 ZOSTER VACCINE (2 of 2) 09/24/2021 07/30/2021 PNEUMOCOCCAL VACCINE 50+ YEA RS (2 of 2 - PCV) 07/30/2022 07/30/2021 INFLUENZA VACCINE (#1) 2024 09/22/2022 COVID-19 Vaccine (3 - 2023-2 5 season) 2024 09/22/2022, 09/07/2022 BREAST CANCER SCREENING 01/07/2025 01/07/20 24, 11/30/2023, 06/12/2019, Additional history exists DTAP/TDAP/TD VACCINES (2 - T d or Tdap) 08/09/2025 08/09/2015 RSV VACCINE (60+ or ) (1 - 1-dose 75+ series) 2031 OSTEOPOROSIS SCREENING Completed , 05/06/2018, 05/06/2018, Additional history exists Insurance MEDICARE PART A AND B [employer] [facility] MEDICARE PART A AND B [facility] [place] [address]
--- OUTSIDE RECORDS SUMMARY | 2025-02-03 07:48 | XMS_ITS | Clinical Summary ---
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 This disclosure is being madepursuant to the Care Everywhere program and may not contain all information available regarding this patient. Last updated 18.[facility] ActionFlow Allergies Active Allergy Reactions Criticality Noted Date [...] Mass Index 33.47 05/29/2024 9:00 AM CDT Plan of Treatment Health Maintenance Due Date Last Done Comments COLOGUARD (AGES 45-75) - COLON CA SCREENING 1955 COLON MONITORING 1956 COLONOSCOPY - COLON CA SCREENING 1956 CT COLONOGRAPHY - COLON CA SCREENING 1955 Colorectal Cancer Screening 1955 FIT - COLON CA SCREENING 1956 FLEX SIG - COLON CA SCREENING 1955 MEDICARE AWV 12 MONTHS 1956 HEPATITIS C SCREENING 09/15/1974 DTAP/TDAP/TD VACCINES (1 - Tdap) 1975 PNEUMOCOCCAL VACCINE 50+ (1 of 1 - PCV) 2006 ZOSTER VACCINE (1 of 2) 2006 COVID-19 VACCINE (6 - season) 2024 09/22/2022, 09/07/2022, 09/29/2021, Additional history exists INFLUENZA VACCINE (#1) 2024 09/22/2022 DEPRESSION SCREENING 11/29/2024 MAMMOGRAM 01/07/2026 01/07/2024, 12/2023, 11/30/2023, Additional history exists SCREENING FOR DIABETES 04/12/2027 , 04/12/2024, 04/12/2024, Additional history exists Respiratory Syncytial Virus (RSV) Vaccine Pt: or over 60 yrs (1 - 1-dose 75+ series) 2031 BONE DENSITY TESTING Completed 05/06/2018, 08/30/20 15 HEPATITIS B VACCINE Aged Out No longe r eligible based on patient's age to complete this topic HIB VACCINE Aged Out No longer eligi ble based on patient's age to complete this topic HPV VACCINE Aged Out No longer eligi ble based on patient's age to complete this topic MENINGOCOCCAL (Group B) VACCINE Aged Out No longer eligible based on patient's age to complete this topic MENINGOCOCCAL VACCINE Aged Out No sloan anthony eligible based on patient's age to complete this topic Procedures Procedure Name Priority Date/Time Associated Diagnosis Comments BASIC METABOLIC PANEL (CALCIUM TOTAL) AM Draw 04/12/2024 1:31 AM CDT Dizziness from Last 3 Months or Most Recently Relevant to Health Maintenance Results * (ABNORMAL) BASIC METABOLIC PANEL (CALCIUM TOTAL) (04/12/2024 1:31 AM CDT) Glucose 122(H) 70 - 105 mg/dL 04/12/2024 2:37 AM CDT [facility] Sodium 141 136 - 145 mmol/L 04/12/2024 2:37 AM CDT [facility] Potassium 3.6 3.5 - 5.1 mmol/L 04/12/2024 2:37 AM CDT [facility] Chloride 109(H) 98 - 107 mmol/L 04/12/2024 2:37 AM CDT [facility] CO2 24 22 - 29 mmol/L 04/12/2024 2:37 AM CDT [facility] Calcium 9.1 8.4 - 10.4 mg/dL 04/12/2024 2:37 AM CDT [facility] Anion Gap 8 6 - 16 mmol/L 04/12/2024 2:37 AM CDT [facility] BUN 17 7 - 26 mg/dL 04/12/2024 2:37 AM CDT [facility] Creatinine 0.81 0.57 - 1.11 mg/dL 04/12/2024 2:37 AM CDT [facility] eGFR by CKD-EPI 80(L) >=90 mL/min/1.7 3 m2 04/12/2024 2:37 AM CDT [facility] Blood BLOOD SPECIMEN / Unknown Venipuncture / Unknown 04/12/2024 1:31 AM CDT 04/12/2024 2:18 AM CDT Everette Gomez MD LAB - CHEMISTRY ORDRolanda ROBERSON [facility] Organization Address City/State/ZIP Co de Phone Number [facility] [address] [place] [address] from Last 3 Months or Most Recently Relevant to Health Maintenance Advance Directives * Full Code (Latest Code Status on File) Date Activated Date Inactivated Comments 04/11/2024 7:08 PM 04/12/2024 6:00 PM Care Teams 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
== END 2025-02-03 07:43 | disposition home or self-care (01) ==
LOC: ANHIMG 07:45
PROVIDERS: PCP Nurse Practitioner Adult Health; Visit Provider Nurse Practitioner Adult Health
DX: Z12.31 Encounter for screening mammogram for malignant neoplasm of breast (principal); R92.8 Other abnormal and inconclusive findings on diagnostic imaging of breast
CPT/HCPCS: 77063; 77067

== ENCOUNTER 2025-06-05 11:36 | Outpatient (CLI) | payer MEDICARE, OTHER, SELFPAY ==
--- NOTE | ~2025-06-05 | CT_ITS ---
History: Expressive aphasia with left facial pain and dizziness PROCEDURE: CT head without contrast. COMPARISON: None TECHNIQUE: Axial imaging of the head performed from the skull base to the vertex without IV contrast. Sagittal a nd coronal reformations obtained. DLP: 599 mGy-cm FINDINGS: The ventricles are normal in size, shape and position. There is no mass, mass effect or midline shift. Decreased attenuation is identified adjacent to left basal ganglia suggesting prior cerebral infarcti on. There is no abnormal extra-axial fluid collection or intracranial hemorrhage. Visualized paranasal sinuses are clear. The mastoid air cells are well aerated. No acute displaced fractures within the overlying cranium. Impression: Prior cerebral infarction without acute intracranial hemorrhage or suspicious mass effect. Reviewed, dictated and finalized at location [facility]. Impression: Prior cerebral infarction without acute intracranial hemorrhage or suspicious m ass effect.
== END 2025-06-05 11:37 | disposition home or self-care (01) ==
PROVIDERS: Visit Provider Nurse Practitioner Adult Health
DX: G50.9 Disorder of trigeminal nerve, unspecified (principal); R47.01 Aphasia; Z86.73 Personal history of transient ischemic attack (TIA), and cerebral infarction without residual deficits
CPT/HCPCS: 70450